=== PATIENT | female | born 1965 | race Caucasian/White ===

== ENCOUNTER 2016-09-28 18:57 | Emergency (ER) | payer BC, OTHER ==
[~2016-09-28] VITALS: Ht 167.6 cm; Wt 98.4 kg
[~2016-09-28 18:57] MED LIST: ALBUAER2 INH; CALC600T9 PO; CHOL100010 PO; MULT-506 PO; PANT40TA2 PO; SNG10 PO; SYMIN8045 INH; TRAM-10 PO; ZNT/300 PO
[2016-09-28 19:01] VITALS: TEMP 36.9; Ht 167.6 cm; Wt 98.4 kg
[2016-09-28] MEDS ORDERED: KETOROLAC TROMETHAMINE 30 MG/ML VIAL IV STA (20:05)
--- NOTE | 2016-09-28 20:11 | EMERGENCY ROOM VISIT NOTE ---
History Report prepared by Mary: Fernando Swain Under the Supervision of: Dr. Myke Hansen D.O. First contact with patient: 19:31 Chief Complaint: HYPERTENSION Stated Complaint: HIGH BP,DIZZY,WEAK,TIGHNESS IN SHOULDER,HEADACHE History of Present Illness The patient is a 51 year old female who presents to the Emergency Room with complaints of a persistent headache that began yesterday, one day prior to arrival. The patient states that she was switched from Lisinopril to Hydrochlorothiazide yesterday by her primary care physician due to an adverse effect. She claims that when she began taking the Hydrochlorothiazide she began to experience persistent headaches. Her headache is worsened by movement and exertion, but is present when at rest. She is also currently complaining of pain in her jaw and left arm. She also mentions experiencing her heart racing last night. 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 Review of Systems See HPI for pertinent positives & negatives. A total of 10 systems reviewed and were otherwise negative. Past Medical & Surgical Medical Problems: (1) Asthma (2) Depression (3) Endometriosis (4) History of adenomatous polyp of colon Surgical Problems: (1) H/O: hysterectomy (2) Hx of cholecystectomy Family History Diabetes mellitus Social History Smoking Status: Never Smoker Alcohol Use: none Drug Use: none Marital Status: Housing Status: lives with family Occupation Status: employed Current/Historical Medications Scheduled Budesonide/Formoterol Fumarate (Symbicort 80-4.5 Mcg/Act), 2 PUFFS INH BID Cetirizine (Zyrtec), 10 MG PO DAILY Hydrochlorothiazide (Hctz), 12.5 MG PO QAM Labetalol (Normodyne), 200 MG PO BID Montelukast Sod (Montelukast Sodium), 10 MG PO DAILY Multivitamin (Multivitamin), 1 TAB PO DAILY Pantoprazole (Pantoprazole Sodium), 40 MG PO BID Ranitidine HCl (Ranitidine HCl), 300 MG PO HS Scheduled PRN Albuterol Sulfate (Proair Respiclick), 1 PUFF INH for SOB/Wheezing Allergies Coded Allergies: Cimicifuga [place] (Black Cohosh) (Verified Allergy, Unknown, HIVES, ) Physical Exam Vital Signs Date Time Temp Pulse Resp B/P (MAP) Pulse Ox O2 Delivery O2 Flow Rate FiO2 09/28/16 22:04 62 16 116/71 96 09/28/16 21:04 64 09/28/16 21:00 65 14 146/84 97 Room Air 09/28/16 20:23 67 16 154/97 98 Room Air 09/28/16 20:12 64 16 155/85 09/28/16 19:43 60 163/102 09/28/16 19:01 36.9 75 18 163/96 98 Room Air Physical Exam GENERAL: Patient is awake, alert, and in no acute distress. Patient is resting comfortably and showing no signs of anxiety EYES: The conjunctivae are clear. The pupils are round and reactive. EARS, NOSE, MOUTH AND THROAT: The nose is without any evidence of any deformity. Mucous membranes are moist tongue is midline NECK: The neck is nontender and supple. RESPIRATORY: Normal respiratory effort is noted there is no evidence of wheezing rhonchi or rales CARDIOVASCULAR: Regular rate and rhythm noted there no murmurs rubs or gallops normal S1 normal S2 GASTROINTESTINAL: The abdomen is soft. Bowel sounds are present in all quadrants. Abdomen is nontender PELVIS: The Pelvis is stable. No tenderness to palpation is noted. BACK: No midline tenderness or or step-off noted range of motion in flexion extension as well as rotation no signs of muscle spasm noted MUSCULOSKELETAL/EXTREMITIES: There is no evidence of gross deformity full range of motion is noted in the hips and shoulders SKIN: There is no obvious evidence of any rash. There are no petechiae, pallor or cyanosis noted. NEUROLOGIC: Patient is awake alert and oriented x3. Medical Decision & Procedures ER Provider Diagnostic Interpretation: Radiology results as stated below per my review and radiologist interpretation: CHEST ONE VIEW PORTABLE CLINICAL HISTORY: cough HYPERTENSION, DIZZINESS, WEAKNESS. HEADACHE. COMPARISON STUDY: 04/02/2015 FINDINGS: The cardiac and mediastinal contours are normal. There is no evidence of focal pulmonary consolidation. There is no evidence of failure. No pleural effusions are visualized.[ IMPRESSION: No active disease in the chest. Electronically signed by: Khoa Boland M.D. 09/28/2016 8:53 PM Dictated Date/Time: 09/28/2016 8:[address] severe headache CLINICAL HISTORY: [facility]EN COMPARISON STUDY: No previous studies for comparison. TECHNIQUE: Axial CT of the brain is performed from the vertex to the skull base. IV contrast was not administered for this examination. CT DOSE: 537.48 mGy.cm FINDINGS: No intra or extra-axial mass lesions are visualized. There is no CT evidence of acute cortical infarction. There is no evidence of midline shift. There is no acute hemorrhage. No calvarial fractures are visualized. There is no evidence of pathologic ventricular dilatation. There is no evidence of acute sinusitis IMPRESSION: Normal noncontrast head CT for age Electronically signed by: Khoa Boland M.D. 09/28/2016 8:37 PM Dictated Date/Time: 09/28/2016 8:36 PM Laboratory Results 09/28/16 19:38 Red Blood Count 5.13, Mean Corpuscular Volume 82.8, Mean Corpuscular Hemoglobin 28.3, Mean Corpuscular Hemoglobin Concent 34.1, Mean Platelet Volume 10.2, Neutrophils (%) (Auto) 54.5, Lymphocytes (%) (Auto) 32.8, Monocytes (%) (Auto) 8.3, Eosinophils (%) (Auto) 3.8, Basophils (%) (Auto) 0.5, Neutrophils # (Auto) 5.02, Lymphocytes # (Auto) 3.03, Monocytes # (Auto) 0.77, Eosinophils # (Auto) 0.35, Basophils # (Auto) 0.05 09/28/16 19:38 Test 09/28/16 19:38 09/28/16 21:13 White Blood Count 9.23 K/uL (4.8-10.8) Red Blood Count 5.13 M/uL (4.2-5.4) Hemoglobin 14.5 g/dL (12.0-16.0) Hematocrit 42.5 % (37-47) Mean Corpuscular Volume 82.8 fL (80-100) Mean Corpuscular Hemoglobin 28.3 pg (25-34) Mean Corpuscular Hemoglobin Concent 34.1 g/dl (32-36) Platelet Count 354 K/uL (130-400) Mean Platelet Volume 10.2 fL (7.4-10.4) Neutrophils (%) (Auto) 54.5 % Lymphocytes (%) (Auto) 32.8 % Monocytes (%) (Auto) 8.3 % Eosinophils (%) (Auto) 3.8 % Basophils (%) (Auto) 0.5 % Neutrophils # (Auto) 5.02 K/uL (1.4-6.5) Lymphocytes # (Auto) 3.03 K/uL (1.2-3.4) Monocytes # (Auto) 0.77 K/uL (0.11-0.59) Eosinophils # (Auto) 0.35 K/uL (0-0.5) Basophils # (Auto) 0.05 K/uL (0-0.2) RDW Standard Deviation 39.6 fL (36.4-46.3) RDW Coefficient of Variation 13.2 % (11.5-14.5) Immature Granulocyte % (Auto) 0.1 % Immature Granulocyte # (Auto) 0.01 K/uL (0.00-0.02) Prothrombin Time 10.0 SECONDS (9.0-12.0) Prothromb Time International Ratio 0.9 (0.9-1.1) Activated Partial Thromboplast Time 24.5 SECONDS (21.0-31.0) Partial Thromboplastin Ratio 0.9 Anion Gap 9.0 mmol/L (3-11) Est Creatinine Clear Calc Drug Dose 77.8 ml/min Estimated GFR () 75.0 Estimated GFR (Non- 64.7 BUN/Creatinine Ratio 13.2 (10-20) Calcium Level 9.0 mg/dl (8.5-10.1) Magnesium Level 2.2 mg/dl (1.8-2.4) Total Bilirubin 0.2 mg/dl (0.2-1) Aspartate Amino Transf (AST/SGOT) 13 U/L (15-37) Alanine Aminotransferase (ALT/SGPT) 22 U/L (12-78) Alkaline Phosphatase 77 U/L (45-117) Total Creatine Kinase 81 U/L (26-192) Creatine Kinase MB 0.6 ng/ml (0.5-3.6) Creatine Kinase MB Ratio 0.7 (0-3.0) Troponin I < 0.015 ng/ml (0-0.045) Total Protein 7.4 gm/dl (6.4-8.2) Albumin 3.7 gm/dl (3.4-5.0) Lipase 118 U/L (73-393) Chemistry Specimen Hemolysis Direct Bilirubin < 0.1 mg/dl (0-0.2) Laboratory results per my review. Medications Administered Medications (Trade) Dose Ordered Sig/Valentina Route Start Time Stop Time Status Last Admin Dose Admin Ketorolac Tromethamine (Toradol Inj) 30 mg NOW STAT IV 09/28/16 20:05 09/28/16 20:07 DC 09/28/16 20:20 30 MG Labetalol HCl (Normodyne Tab) 200 mg NOW ONCE PO 09/28/16 20:15 09/28/16 20:16 DC 09/28/16 20:19 200 MG ECG Indication: palpitations Rate (beats per minute): 64 Rhythm: normal sinus Findings: no acute ischemic change, no ectopy Comparison ECG Date: 04/04/2015 Change: no significant change ED Course 1955: The patient was evaluated in room C8. A complete history and physical examination were performed. 2004: Ordered Toradol 30 mg IV. 2014: Ordered Labetalol HCl 200 mg PO. 2154: Upon reevaluation, the patient is resting in bed. I discussed the results and treatment plan with her. She verbalized agreement of the treatment plan. The patient was discharged home. Medical Decision Blood pressure screening: Patient was found to have an elevated blood pressure and was referred to their primary doctor for recheck and further treatment. Medication Reconciliation: I attest that I have personally reviewed the patient' s current medications list. Differential diagnosis: Etiologies such as migraine headache, meningitis, sinusitis, CO exposure, ICH, SAH, infection, tumor, headache, sinus thrombosis, arterial dissection, as well as others were entertained. The patient is a 51-year-old female who presented to the emergency department for evaluation of headache and elevated blood pressure. The patient has a history of chronic hypertension but recently started having side effects from her REJI inhibitor. For this reason her blood pressure medication was changed and she is now taking HCTZ. She has found that she has had for blood pressure control with this medication. She states that she has been compliant with her medication but does not have a follow-up appointment with her doctor for 2 weeks. The patient was treated with labetalol in the emergency department. She was reevaluated multiple times. On subsequent reevaluation she was feeling much better and her blood pressure improved. She was encouraged to continue all medications as prescribed. She was also encouraged to rest and avoid any strenuous activity. I also recommended that she follow-up with her family doctor for blood pressure check or return to the emergency department immediately if symptoms change worsen or the need arises. She was also told that she may need a refill the medication that I started her on today because she was only given a 30 day supply to ensure she did not start a medication that her primary care physician did not want to switch at some point. Impression Primary Impression: Hypertension Additional Impression: Left-sided headache Scribe Attestation The scribe's documentation has been prepared under my direction and personally reviewed by me in its entirety. I confirm that the note above accurately reflects all work, treatment, procedures, and medical decision making performed by me. Departure Information Dispostion Home / Self-Care Prescriptions Labetalol (Normodyne) 200 Mg Tab 200 MG PO BID, #60 TAB Prov: Myke Hansen, DO 09/28/16 Referrals RV. Morrell MD (PCP) Forms HOME CARE DOCUMENTATION FORM, IMPORTANT VISIT INFORMATION, WORK / SCHOOL INSTRUCTIONS Patient Instructions My [facility] Additional Instructions Continue all medications as prescribed. Rest and avoid any strenuous activity. Call your family [facility] to schedule a follow-up appointment. Be sure to have your blood pressures checked with your family doctor to determine if you need any changes in your blood pressure medications. Problem Qualifiers
[2016-09-28 20:13] LABS: BASO % 0.5 %; BASO ABS # 0.05 K/uL (0-0.2); COMPLETE YES; EOS % 3.8 %; HEMATOCRIT 42.5 % (37-47); IG% 0.1 %; LYMPH % 32.8 %; LYMPH ABS # 3.03 K/uL (1.2-3.4); MEAN CELL VOLUME 82.8 fL (80-100); MEAN CORPUSCULAR HEMOGLOBIN 28.3 pg (25-34); MEAN CORPUSCULAR HGB CONC 34.1 g/dl (32-36); MEAN PLATELET VOLUME 10.2 fL (7.4-10.4); MONO % 8.3 %; NEUT % 54.5 %; PLATELET COUNT 354 K/uL (130-400); RED BLOOD COUNT 5.13 M/uL (4.2-5.4); WHITE BLOOD COUNT 9.23 K/uL (4.8-10.8)
[2016-09-28] MEDS ORDERED: CETI10TA84 PO (20:14)
[2016-09-28] MEDS ORDERED: ALBU18002 INH (20:14)
[2016-09-28] MEDS ORDERED: HYDR12.56 PO (20:14)
[2016-09-28] MEDS ORDERED: LABETALOL HCL 100 MG TAB PO ONE (20:15)
[2016-09-28 20:25] LABS: INR 0.9 (0.9-1.1); PARTIAL THROMBOPLASTIN RATIO 0.9
[2016-09-28 20:36] LABS: ALKALINE PHOSPHATASE 77 U/L (45-117); ALT/SGPT 22 U/L (12-78); AST/SGOT 13 U/L (15-37); BLOOD UREA NITROGEN 13 mg/dl (7-18); BUN/CREATININE RATIO 13.2 (10-20); CARBON DIOXIDE 27 mmol/L (21-32); CHLORIDE 103 mmol/L (98-107); CKMB/CK RATIO 0.7 (0-3.0); GLUCOSE 97 mg/dl (70-99); MAGNESIUM 2.2 mg/dl (1.8-2.4); POTASSIUM 3.9 mmol/L (3.5-5.1); SODIUM 139 mmol/L (136-145)
--- NOTE | 2016-09-28 20:38 | DIAGNOSTIC IMAGING REPORT ---
CT severe headache CLINICAL HISTORY: [facility]EN COMPARISON STUDY: No previous studies for comparison. TECHNIQUE: Axial CT of the brain is performed from the vertex to the skull base. IV contrast was not administered for this examination. CT DOSE: 537.48 mGy.cm FINDINGS: No intra or extra-axial mass lesions are visualized. There is no CT evidence of acute cortical infarction. There is no evidence of midline shift. There is no acute hemorrhage. No calvarial fractures are visualized. There is no evidence of pathologic ventricular dilatation. There is no evidence of acute sinusitis IMPRESSION: Normal noncontrast head CT for age Electronically signed by: Khoa Boland M.D. 09/28/2016 8:37 PM Dictated Date/Time: 09/28/2016 8:36 PM
--- NOTE | 2016-09-28 20:54 | DIAGNOSTIC IMAGING REPORT ---
CHEST ONE VIEW PORTABLE CLINICAL HISTORY: cough HYPERTENSION, DIZZINESS, WEAKNESS. HEADACHE. COMPARISON STUDY: 04/02/2015 FINDINGS: The cardiac and mediastinal contours are normal. There is no evidence of focal pulmonary consolidation. There is no evidence of failure. No pleural effusions are visualized.[ IMPRESSION: No active disease in the chest. Electronically signed by: Khoa Boland M.D. 09/28/2016 8:53 PM Dictated Date/Time: 09/28/2016 8:52 PM
[2016-09-28] MEDS ORDERED: LABE1TAB28 PO (21:53)
[2016-09-28 22:04] VITALS: BP 116/71; PULSE 62; O2SAT 96
== END 2016-09-28 22:06 | disposition home or self-care (01) ==
LOC: C.EDB 18:59 → C.EDC 22:06
DX: I10 Essential (primary) hypertension (principal); R51 Headache; J45.909 Unspecified asthma, uncomplicated; F33.41 Major depressive disorder, recurrent, in partial remission; N80.9 Endometriosis, unspecified; Z83.3 Family history of diabetes mellitus

== ENCOUNTER → 2017-02-05 | Outpatient (CLI) | payer OTHER, BC ==
[~2017-02-05] MED LIST changes: +ALBU18002 INH; -ALBUAER2 INH; -CALC600T9 PO; +CETI10TA84 PO; -CHOL100010 PO; +HYDR12.56 PO; +LABE1TAB28 PO; -PANT40TA2 PO; +PRT/40 PO; -TRAM-10 PO
--- NOTE | 2017-02-05 11:37 | DIAGNOSTIC IMAGING REPORT ---
ULTRASOUND OF THE CAROTID ARTERIES CLINICAL HISTORY: I10 Benign essential [id number] TIA (transient ischemic attack COMPARISON STUDY: None. TECHNIQUE: Real-time, grayscale, and color Doppler sonography of the carotid arteries was performed. Imaging reviewed in the transverse and longitudinal planes. NASCET criteria was utilized for stenosis calcification. FINDINGS: There is minimal atherosclerotic plaque present . The peak systolic velocity within the right internal carotid artery is 116 cm/sec. The systolic velocity ratio of right internal to common carotid artery is 0.9. The peak systolic velocity within the left internal carotid artery is 108 cm/sec. The systolic velocity ratio left internal to common carotid artery is 0.8. Antegrade flow is seen in the vertebral arteries. The external carotid arteries are patent. Blood pressure in the right arm measured 127 mm/Hg. Blood pressure in the left arm measured 116 mm/Hg. IMPRESSION: No evidence of hemodynamically significant carotid stenosis. Electronically signed by: Khoa Boland M.D. 02/05/2017 11:36 AM Dictated Date/Time: 02/05/2017 11:35 AM
== END | disposition home or self-care (01) ==
LOC: C.ULTR 10:45
PROVIDERS: ATTEND Internal Medicine
DX: I10 Essential (primary) hypertension (principal); G45.9 Transient cerebral ischemic attack, unspecified; F80.89 Other developmental disorders of speech and language

== ENCOUNTER → 2017-03-12 | Outpatient (CLI) | payer OTHER, BC ==
[~2017-03-12] MED LIST changes: +PANT40TA2 PO; -PRT/40 PO
--- NOTE | 2017-03-15 08:13 | MAMMOGRAPHY REPORT ---
BILATERAL DIGITAL SCREENING MAMMOGRAM TOMOSYNTHESIS WITH CAD: 03/12/2017 CLINICAL HISTORY: Routine screening. The patient reported to the technologist intermittent left late ral breast pain for approximately 6 months. TECHNIQUE: Breast tomosynthesis in addition to standard 2D mammography was performed. Current study was also evaluated with a Computer Aided Detection (CAD) system. COMPARISON: Comparison is made to exams dated: 02/29/2016 mammogram, 02/16/2015 mammogram, 01/19/2014 mammogram, 11/01/2011 mammogram, 01/08/2013 mammogram, and 10/16/2010 mammogram - [facility]. BREAST COMPOSITION: There are scattered areas of fibroglandular density in both breasts. FINDINGS: No suspicious masses, calcifications, or areas of architectural distortion are noted in ei ther breast. There has been no significant interval change compared to prior exams. A square marker abraham the site of intermittent pain pointed out by the patient in the left upper outer quadrant. No suspicious masses or other suspicious mammographic abnormalities are seen in this region. A linear s car marker denotes a scar on the left upper outer breast. Bilateral benign-appearing calcifications are not significantly changed. IMPRESSION: ACR BI-RADS CATEGORY 2: BENIGN There is no mammographic evidence of malignancy. A 1 year screening mammogram is recommended. Also r ecommend clinical follow-up for intermittent left lateral breast pain. The patient will receive writ ten notification of the results. Approximately 10% of breast cancers are not detected with mammography. A negative mammographic report should not delay biopsy if a clinically suggestive mass is present. Amy Hill M.D. ah/:03/12/2017 16:18:27 Grades 1 Through 5 Teacher: Luiza Tran M, [facility] letter sent: Normal 1/2 BI-RADS Code: ACR BI-RADS Category 2: Benign
== END | disposition home or self-care (01) ==
LOC: C.MAMM 15:20
PROVIDERS: ATTEND Obstetrics & Gynecology
DX: Z12.31 Encounter for screening mammogram for malignant neoplasm of breast (principal)

== ENCOUNTER → 2017-03-12 | Outpatient (CLI) | payer OTHER, BC | END | disposition home or self-care (01) | LOC: C.PAPS 09:40 | PROVIDERS: ATTEND Obstetrics & Gynecology | DX: Z01.419 Encounter for gynecological examination (general) (routine) without abnormal findings (principal) ==

== ENCOUNTER → 2017-09-05 | Outpatient (CLI) | payer OTHER, BC ==
[~2017-09-05] MED LIST changes: -LABE1TAB28 PO
[2017-09-05 14:58] LABS: ALBUMIN 3.5 gm/dl (3.4-5.0); ALKALINE PHOSPHATASE 67 U/L (45-117); ALT/SGPT 29 U/L (12-78); AST/SGOT 19 U/L (15-37); BLOOD UREA NITROGEN 12 mg/dl (7-18); CARBON DIOXIDE 28 mmol/L (21-32); CHOLESTEROL 199 mg/dl (0-200); CREATININE 1.04 mg/dl (0.60-1.20); GLUCOSE 106 mg/dl (70-99); LDL CHOLESTEROL CALCULATED 116 mg/dl; POTASSIUM 3.9 mmol/L (3.5-5.1); SODIUM 139 mmol/L (136-145); TOTAL PROTEIN 7.2 gm/dl (6.4-8.2)
== END | disposition home or self-care (01) ==
LOC: C.LABPBG 07:32
PROVIDERS: ATTEND Internal Medicine
DX: I10 Essential (primary) hypertension (principal); E55.9 Vitamin D deficiency, unspecified

== ENCOUNTER 2024-09-13 16:32 | Inpatient (IN) ==
--- NOTE | 2024-09-13 17:08 | Emergency Department Note ---
Impression & Plan Bipolar 1 disorder with moderate amparo, Abdominal pain, HTN (hypertension), Elevated troponin ED Provider Note Provider: Otoniel Smith MD CHIEF COMPLAINT: Amparo, stomach upset HISTORY OF PRESENT ILLNESS: Patient is a 58-year-old female history of bipolar, PTSD, and GERD presenting here today brought by son. Patient's provide some history but extensive history from patient's son who states that she had a good manic episode. This began on Saturday 2 days ago. Has been some increased work stress recently. Over the last several months was titrated down to 250 mg of valproic acid at night and to establish with a new psychiatrist. Patient herself is a bit tearful. Slow and quiet to respond. States has not slept in several days and feels weak and a little bit of upper abdominal discomfort. No falls. Patient's son reports patient's been having visual and auditory hallucinations seeing and hearing people who are not there. He states that the patient has been wandering some and expressed to him some thoughts of possibly wanting to harm herself. Patient states she would never hurt herself but does not answer further questions on this point. She does not want to hurt anybody else at this time. Patient son reports the patient every few years has a manic episode and it has been approximately 2 years since her last but this is worse than normal. Was able to consider comfort care today. Patient denies any drug or alcohol issues. Patient's son states that he has been able to get her to take her medicines with some urging. Reports about a week of some abdominal discomfort. Patient's son states that the patient often has some abdominal upset when she has manic episodes related to stress. No traumas reported. PAST MEDICAL HISTORY: As noted above MEDICATIONS: Reviewed home medications SOCIAL HISTORY: Denies drug or alcohol use. PHYSICAL EXAM: GENERAL: alert and oriented in no acute distress on stretcher Head: normocephalic and atraumatic EYES: No injection, purulent discharge or icterus. NECK: Trachea midline. ENT: Mucous membranes pink and moist. LUNGS: Airway patent. No retractions. Breath sounds clear HEART: Regular rate and rhythm. No chest wall tenderness ABDOMEN: Soft with some mild to moderate abdominal tenderness above the abdomen. SKIN: Acyanotic, warm, dry, without rashes EXTREMITIES: Without swelling, tenderness or deformity NEUROLOGICAL: No focal deficits. No aphasia. No facial droop or slurred speech. Ambulatory. Psych: Flattened affect at times tearful. Reports hallucinations but not obviously responding to external stimuli. Denies that she harm her self but does not answer question if she had suicidal thoughts. No homicidal tendencies or thoughts reported by the patient or son. EK bpm normal sinus rhythm. No PVC or PAC. No acute ST segment elevation or depression with some nonspecific T wave changes and T wave flattening with QTc of 441. Patient's laboratory studies and imaging reviewed. Differential includes Mood disorder, infection, hypoglycemia, electrolyte abnormalities, gastrointestinal, pancreatitis, gastritis, cardiac sources, intracerebral event, toxicologic, trauma, neurologic, as well as other pathologies. IMPRESSION/MEDICAL DECISION MAKING: Patient appears with flat affect and tearful with manic symptoms reported. History of PTSD bipolar with flare last reported 2 years ago. Does not appear to be functioning well at this time. The abdominal discomfort and tenderness could be functional/matization but will obtain blood work as well as a CT scan to exclude other occult pathology here. Doubt meningitis or CVA at this time based on her presentation. Seen with case management regards to her mental health/psychiatric complaints with hallucinations. Believe further inpatient care would be beneficial for the patient from a psychiatric standpoint. Blood work here returns slight nonspecific leukocytosis of 13. No anemia. No severe electrolyte abnormality with normal creatinine. No blood work findings consistent with acute hepatitis or pancreatitis. Troponin returns at 26.6 elevated from prior baseline of 2.5. Not having active chest pain. EKG without significant findings. Question stress response. Tylenol, acetaminophen, alcohol levels returned undetectable with a valproic acid level of 20 on the lower end. Negative COVID testing. Some ketones in the urine which does appear somewhat concentrated given a gentle IV fluid bolus. CT abdomen pelvis shows without acute abnormality per radiology report. Patient certainly needs psychiatric care regarding her amparo symptoms, however do question if the stress of the situation is causing a slight troponin elevation and given this with her hypertension, we will bring into the hospital and medical service for further care here. Further discussion patient and family later reports been probably 2 to 3 days and she is taking her home carvedilol which is likely contributing to her blood pressure. Patient declined IV labetalol here and will see blood pressure control with restart of her oral medications. Blood pressure did improve somewhat. Discussed with the hospitalist team further observation here. Discussed with the hospitalist team. DIAGNOSIS: Amparo, bipolar disorder, abdominal pain, hypertensive, elevated troponin DISPOSITION: Being evaluated by the hospitalist team. Patient and family updated. Past Med/Surg History Problem List Elevated troponin (Acute) HTN (hypertension) (Acute) Abdominal pain (Acute) Bipolar 1 disorder with moderate amparo (Acute) Degenerative disc disease, lumbar Foot pain, right Right knee pain Prediabetes Postmenopausal Metabolic syndrome Overweight SOB (shortness of breath) on exertion Allergy Asthma (Chronic) Acid reflux disease (Chronic) Chronic sinusitis (Chronic) Lumbar herniated disc (Chronic) PTSD (post-traumatic stress disorder) (Chronic) Sinus bradycardia (Chronic) Sleep disturbance (Chronic) Transient ischemic attack (Chronic) Vitamin D deficiency (Chronic) Depression (Chronic) Hypertension (Chronic) Medical History Cataract UTI (urinary tract infection) COVID-19 Uterine leiomyoma Breast mass Encounter for routine gynecological examination Esophagitis Mood disorder Left flank pain Insomnia Hallucinations History of adenomatous polyp of colon Asthma Endometriosis Chest pain Surgical History S/P bilateral salpingo-oophorectomy Status post laparoscopic supracervical hysterectomy S/P cholecystectomy History of sinus surgery History of nasal septoplasty History of breast biopsy History of laparoscopy endometriosis with laser Family History Mother Hypertension Asthma Malignant neoplasm of uterus Brother Hypertension Grandmother Diabetes Father Kidney stones Myocardial infarction Family/Other Osteoporosis Grandfather (Maternal) Myocardial infarction Other Cancer Heart disease Denies family history of Ovarian cancer Prostate cancer Breast cancer Colorectal cancer Social History Smoking Status: Never smoker Do You Dip or Chew Tobacco: No; Hx Alcohol Use: No Hx Substance Use: No Preferred Language: Latvian Communication Ability: Effective Visual Impairment: No Limitations Hearing Ability: Normal Hospital Clinic Assistant Required: No marital status: Current Living Situation: Spouse current occupational status: employed Feels Safe at Home: No Childhood Exposure to Second-Hand Smoke: No Dental Care, Regularly: Yes Physical Activity Frequency: 3-4 Times per Week Seatbelt Use: always Sunscreen Use: Yes Gender Identity: Female Allergies Allergies Allergy/AdvReac Type Severity Reaction Status Date / Time black cohosh Allergy Unknown HIVES Verified 09/13/24 19:11 methylprednisolone Allergy Unknown Redness of Verified 09/13/24 19:11 Skin clindamycin Allergy Hives Verified 09/13/24 19:11 hydrochlorothiazide Allergy Hives Verified 09/13/24 19:11 lisinopril Allergy Cough Verified 09/13/24 19:11 Home Meds Home Medications Medication Instructions Recorded Confirmed calcium carbonate (Calcium 600) 600 mg PO DAILY 09/27/22 09/13/24 ferrous sulfate 325 mg (65 mg 325 mg PO Q OTHER DAY 05/11/24 09/13/24 iron) tablet divalproex 250 mg tablet,extended 250 mg PO HS 05/25/24 09/13/24 release 24 hr ergocalciferol (vitamin D2) 1,250 1,250 mcg PO WK 05/25/24 09/13/24 mcg (50,000 unit) capsule (Vitamin D2) Previous Rx's Medication Instructions Recorded montelukast 10 mg tablet 10 mg PO HS #90 tabs 02/03/24 cetirizine 10 mg tablet 10 mg PO HS #90 tabs 04/06/24 albuterol sulfate 90 mcg/actuation 1 inh inhalation QID PRN shortness 04/14/24 aerosol inhaler of breath or wheezing #6.7 grams budesonide-formoterol HFA 160 2 puff inhalation Q12H #10.2 grams 05/11/24 mcg-4.5 mcg/actuation aerosol inhaler (Symbicort) meclizine 25 mg tablet 25 mg PO TID PRN dizziness #14 tabs 05/25/24 carvedilol 12.5 mg tablet 12.5 mg PO BID #60 tabs 08/11/24 Results & Data (ED) Vital Signs Vital Signs - 24 hr 09/13/24 16:33 09/13/24 18:07 09/13/24 18:10 Temperature 36.6 C Temperature Source Temporal Artery Scan Pulse Rate 105 H 77 Pulse Rate [Apical] Pulse Rate from SpO2 Sensor Respiratory Rate 18 Blood Pressure 187/102 H 188/102 H Blood Pressure [Left Arm] Blood Pressure Mean 130 149 Blood Pressure Mean [Left Arm] Pulse Oximetry 96 Oxygen Delivery Method Sepsis Recent Fever Within 48 Hours No Sepsis New/Unexplained Change in Mental Status N/A Sepsis Action Taken by Nursing No Action Required 09/13/24 18:21 09/13/24 18:39 09/13/24 18:40 Temperature Temperature Source Pulse Rate 83 95 H Pulse Rate [Apical] Pulse Rate from SpO2 Sensor 82 96 H Respiratory Rate 25 H 25 H Blood Pressure 171/83 H Blood Pressure [Left Arm] Blood Pressure Mean 111 Blood Pressure Mean [Left Arm] Pulse Oximetry 97 97 Oxygen Delivery Method Room Air Room Air Sepsis Recent Fever Within 48 Hours Sepsis New/Unexplained Change in Mental Status Sepsis Action Taken by Nursing 09/13/24 19:00 09/13/24 20:00 09/13/24 21:14 Temperature Temperature Source Pulse Rate Pulse Rate [Apical] 75 69 71 Pulse Rate from SpO2 Sensor Respiratory Rate 16 16 16 Blood Pressure Blood Pressure [Left Arm] 158/96 H 150/87 H 145/78 H Blood Pressure Mean Blood Pressure Mean [Left Arm] 116 108 100 Pulse Oximetry 98 96 100 Oxygen Delivery Method Room Air Room Air Room Air Sepsis Recent Fever Within 48 Hours Sepsis New/Unexplained Change in Mental Status Sepsis Action Taken by Nursing 09/13/24 22:00 09/13/24 22:17 09/13/24 23:00 Temperature Temperature Source Pulse Rate 83 78 Pulse Rate [Apical] 92 H Pulse Rate from SpO2 Sensor Respiratory Rate 16 16 Blood Pressure 155/88 H Blood Pressure [Left Arm] 155/85 H Blood Pressure Mean Blood Pressure Mean [Left Arm] 108 Pulse Oximetry 97 99 Oxygen Delivery Method Room Air Sepsis Recent Fever Within 48 Hours Sepsis New/Unexplained Change in Mental Status Sepsis Action Taken by Nursing Laboratory Data 09/13/24 16:58 09/13/24 16:58 Lab Results 09/13/24 09/13/24 09/13/24 Range/Units 16:40 16:58 18:08 WBC 13.15 H (4.8-10.8) K/ul RBC 5.98 H (4.20-5.40) M/uL Hgb 16.7 H (12.0-16.0) g/dl Hct 49.2 H (37.0-47.0) % MCV 82.3 (80.0-100.0) fL MCH 27.9 (25.0-34.0) pg MCHC 33.9 (32.0-36.0) g/dL RDW Std Deviation 37.7 (36.4-46.3) fL RDW Coeff of Yajaira 12.8 (11.5-14.5) % Plt Count 454 H (130-400) K/uL MPV 10.1 (9.4-12.4) fL Immature Gran % (Auto) 0.3 % Neut % (Auto) 75.7 % Lymph % (Auto) 16.0 % [place] % (Auto) 7.4 % Eos % (Auto) 0.1 % Baso % (Auto) 0.5 % Neut # (Auto) 9.96 H (1.40-6.50) K/uL Lymph # (Auto) 2.11 (1.20-3.40) K/uL [place] # (Auto) 0.97 H (0.11-0.59) K/uL Eos # (Auto) 0.01 (0.00-0.50) K/uL Baso # (Auto) 0.06 (0.00-0.20) K/uL Immature Gran # (Auto) 0.04 (0.01-0.20) K/uL Sodium 138 (136-145) mmol/L Potassium 3.7 (3.5-5.1) mmol/L Chloride 102 (98-107) mmol/L Carbon Dioxide 19 L (21-32) mmol/L Anion Gap 17 H (3-11) BUN 20 (6-23) mg/dl Creatinine 0.89 (0.6-1.2) mg/dl Est Cr Clr Drug Dosing 76.2 ml/min eGFR 74.64 BUN/Creatinine Ratio 22.5 H (10-20) Glucose 120 H (70-99(Fasting)) mg/dl Lactate (0.4-2.0) mmol/L Calcium 10.2 (8.6-10.3) mg/dl Total Bilirubin 0.5 (0.2-1.0) mg/dl AST 19 (13-39) U/L ALT 15 (7-52) U/L Alkaline Phosphatase 65 (34-104) U/L Troponin I High Sens 26.6 H (0-14) pg/ml Total Protein 8.4 H (6.0-8.3) gm/dl Albumin 5.0 (3.4-5.0) gm/dl Globulin 3.4 (2.5-4.0) gm/dl Albumin/Globulin Ratio 1.5 (0.9-2) Lipase 8 L (11-82) U/L TSH 2.073 (0.300-4.500) uIu/ml Urine Color Yellow Urine Appearance Clear (Clear) Urine pH 5.0 (4.5-7.5) Ur Specific [place] > 1.045 H (1.000-1.030) Urine Protein 1+ H (Negative) Urine Glucose (UA) Negative (Negative) Urine Ketones 4+ H (Negative) Urine Blood 1+ H (Negative) Urine Nitrite Negative (Negative) Urine Bilirubin Negative (Negative) Urine Urobilinogen Negative (Negative) Ur Leukocyte Esterase Negative (Negative) Urine WBC (Auto) 0-5 (0-5) /hpf Urine RBC (Auto) 6-10 H (0-2) /hpf U Hyaline Cast (Auto) 0-2 (0-2) /lpf U Epithel Cells (Auto) 0-2 (0-2) /hpf Urine Bacteria (Auto) None Seen (None Seen) Urine Comment Salicylates < 3.0 L (3.0-30) mg/dl Urine Opiates Screen Neg (Neg) Ur Methadone, Qual Neg (Neg) Urine Fentanyl Screen Neg (Neg) Acetaminophen < 3 L (10-30) ug/ml Urine Barbiturates Neg (Neg) Valproic Acid 20 L (50-100) mcg/ml Ur Phencyclidine (PCP) Neg (Neg) U Amphetamin/Meth Scrn Neg (Neg) MDMA (Ecstasy) Screen Neg (Neg) U Benzodiazepines Scrn Neg (Neg) Ur Cocaine Metabolite Neg (Neg) U Marijuana (THC) Screen Neg (Neg) Ethyl Alcohol mg/dL < 10.0 (<10.0) mg/dl SARS-CoV-2, RNA, NAAT NEGATIVE (NEGATIVE) 09/13/24 09/13/24 Range/Units 20:43 21:12 WBC (4.8-10.8) K/ul RBC (4.20-5.40) M/uL Hgb (12.0-16.0) g/dl Hct (37.0-47.0) % MCV (80.0-100.0) fL MCH (25.0-34.0) pg MCHC (32.0-36.0) g/dL RDW Std Deviation (36.4-46.3) fL RDW Coeff of Yajaira (11.5-14.5) % Plt Count (130-400) K/uL MPV (9.4-12.4) fL Immature Gran % (Auto) % Neut % (Auto) % Lymph % (Auto) % [place] % (Auto) % Eos % (Auto) % Baso % (Auto) % Neut # (Auto) (1.40-6.50) K/uL Lymph # (Auto) (1.20-3.40) K/uL [place] # (Auto) (0.11-0.59) K/uL Eos # (Auto) (0.00-0.50) K/uL Baso # (Auto) (0.00-0.20) K/uL Immature Gran # (Auto) (0.01-0.20) K/uL Sodium (136-145) mmol/L Potassium (3.5-5.1) mmol/L Chloride (98-107) mmol/L Carbon Dioxide (21-32) mmol/L Anion Gap (3-11) BUN (6-23) mg/dl Creatinine (0.6-1.2) mg/dl Est Cr Clr Drug Dosing ml/min eGFR BUN/Creatinine Ratio (10-20) Glucose (70-99(Fasting)) mg/dl Lactate 1.9 (0.4-2.0) mmol/L Calcium (8.6-10.3) mg/dl Total Bilirubin (0.2-1.0) mg/dl AST (13-39) U/L ALT (7-52) U/L Alkaline Phosphatase (34-104) U/L Troponin I High Sens 35.5 H (0-14) pg/ml Total Protein (6.0-8.3) gm/dl Albumin (3.4-5.0) gm/dl Globulin (2.5-4.0) gm/dl Albumin/Globulin Ratio (0.9-2) Lipase (11-82) U/L TSH (0.300-4.500) uIu/ml Urine Color Urine Appearance (Clear) Urine pH (4.5-7.5) Ur Specific [place] (1.000-1.030) Urine Protein (Negative) Urine Glucose (UA) (Negative) Urine Ketones (Negative) Urine Blood (Negative) Urine Nitrite (Negative) Urine Bilirubin (Negative) Urine Urobilinogen (Negative) Ur Leukocyte Esterase (Negative) Urine WBC (Auto) (0-5) /hpf Urine RBC (Auto) (0-2) /hpf U Hyaline Cast (Auto) (0-2) /lpf U Epithel Cells (Auto) (0-2) /hpf Urine Bacteria (Auto) (None Seen) Urine Comment Salicylates (3.0-30) mg/dl Urine Opiates Screen (Neg) Ur Methadone, Qual (Neg) Urine Fentanyl Screen (Neg) Acetaminophen (10-30) ug/ml Urine Barbiturates (Neg) Valproic Acid (50-100) mcg/ml Ur Phencyclidine (PCP) (Neg) U Amphetamin/Meth Scrn (Neg) MDMA (Ecstasy) Screen (Neg) U Benzodiazepines Scrn (Neg) Ur Cocaine Metabolite (Neg) U Marijuana (THC) Screen (Neg) Ethyl Alcohol mg/dL (<10.0) mg/dl SARS-CoV-2, RNA, NAAT (NEGATIVE) Administered Medications Discontinued Medications Carvedilol (Carvedilol 12.5 Mg Tab) 12.5 mg PO NOW ONE Stop: 09/13/24 18:41 Last Admin: 09/13/24 18:49 Dose: 12.5 mg Documented By: AMILCAR Sodium Chloride (Nss) 500 mls @ 999 mls/hr IV .Q31M ONE Stop: 09/13/24 19:03 Last Infusion: 09/13/24 19:38 Dose: Infused Documented By: Admin: 09/13/24 18:41 Dose: 999 mls/hr Documented By: AMILCAR Ioversol (Optiray 320 100ml) 90 ml IV ONCE ONE Stop: 09/13/24 17:35 Last Admin: 09/13/24 17:34 Dose: 90 ml Documented By: TORI Labetalol HCl (Labetalol Hcl Iv 5 Mg/Ml 20ml) 10 mg IV NOW STA Stop: 09/13/24 18:35 Last Admin: 09/13/24 18:51 Dose: Not Given Documented By: AMILCAR Imaging Data Radiologist's Impression: Abdomen/Pelvis CT 09/13/24 16:59 EXAM: CT abd pelvis IV con only CLINICAL HISTORY: Mid upper abdominal pain, weak, amparo TECHNIQUE: CT of the abdomen and pelvis was performed with IV contrast, with the following protocol: axial images with, and reconstructed coronal and sagittal images. One of the following dose reduction techniques was utilized for this exam: Automated exposure control, adjustment of the mA and/or kV according to patient size, and use of iterative reconstruction. COMPARISON: 01/13/2019 FINDINGS: Abdomen: Liver: Normal in size, shape, and density. No focal lesions, cysts, or masses were identified. Hepatic vasculature and biliary ducts are unremarkable. Gallbladder and Biliary System: The gallbladder is not seen. The common bile duct is normal in caliber without dilation. Pancreas: Pancreatic head, body, and tail are visualized and appear normal in size and density. No pancreatic masses or calcifications were noted. The pancreatic duct is not dilated. Spleen: Normal in size, shape, and density. No splenic lesions or masses were identified. Appendix: The appendix is normal in size without satya appendiceal fat stranding, and without an appendicolith. No evidence of appendiceal abscess or perforation. Kidneys and Adrenal Glands: Both kidneys are normal in size, shape, and position. Cortical thickness is within normal limits. No renal calculi or hydronephrosis. Adrenal glands are unremarkable with no evidence of masses or hyperplasia. Pelvis: Urinary Bladder: Normal in contour and wall thickness. No intraluminal lesions identified. Uterus: Not seen. Ovaries: Not well visualized but no gross abnormalities noted. Vagina: Normal in contour and wall thickness. Cervix: No evidence of mass or abnormal thickening. Peritoneal and Retroperitoneal Structures: No free fluid or abnormal fluid collections were identified within the abdomen or pelvis. No lymphadenopathy was noted. Bowel: The visualized bowel loops are normal in caliber and appearance. No evidence of bowel obstruction or wall thickening. Bones and Soft Tissues: Pelvic bones and soft tissues are unremarkable. No fractures or abnormal masses were identified. Mild degenerative changes of the spine. Lung bases: Dependent atelectasis in both posterior lung bases. IMPRESSION: No evidence of acute intra-abdominal pathology. No significant change from prior. Electronically signed by Sohan Mathis 09-13-2024 8:08 PM Discharge Plan Visit Data Chief Complaint: Mental Health Evaluation Stated Complaint: AMPARO, HALLUCINATION, SELF HARM ED Provider: Otoniel Smith Discharge Problem: Bipolar 1 disorder with moderate amparo, Abdominal pain, HTN (hypertension), Elevated troponin Patient Disposition: Being Evaluated by Hospitalist Condition: Fair Discharge Instructions Interventions: ED Discharge Assessment Last Done: 09/13/24 23:00 Forms Stand Alone Forms: My [facility] [employer], Suicide Prevention Resources Prescriptions Prescriptions: No Action montelukast 10 mg tablet 10 mg PO HS Qty: 90 3RF cetirizine 10 mg tablet 10 mg PO HS Qty: 90 3RF albuterol sulfate 90 mcg/actuation HFA aerosol inhaler 1 inh INH QID PRN (Reason: shortness of breath or wheezing) Qty: 6.7 3RF carvedilol 12.5 mg tablet 12.5 mg PO BID Qty: 60 5RF Rx Instructions: must administer with a meal/food calcium carbonate [Calcium 600] 600 mg calcium (1,500 mg) tablet 600 mg PO DAILY ferrous sulfate 325 mg (65 mg iron) tablet 325 mg PO Q OTHER DAY budesonide-formoterol [Symbicort] 160-4.5 mcg/actuation HFA aerosol inhaler 2 puff inhalation Q12H Qty: 10.2 1RF ergocalciferol (vitamin D2) [Vitamin D2] 1,250 mcg (50,000 unit) capsule 1,250 mcg PO WK Rx Instructions: Patient takes on Sundays divalproex 250 mg tablet extended release 24 hr 250 mg PO HS meclizine 25 mg tablet 25 mg PO TID PRN (Reason: dizziness) Qty: 14 0RF Referrals Referrals: Shai Cevallos MD [Primary Care Provider] -
[2024-09-13 17:13] LABS: Basophils # (auto) 0.06 K/uL (0.00-0.20); Basophils % (auto) 0.5 %; Eosinophils # (auto) 0.01 K/uL (0.00-0.50); Eosinophils % (auto) 0.1 %; Hematocrit (blood only) 49.2 % (37.0-47.0); Hemoglobin 16.7 g/dl (12.0-16.0); Immature Granulocytes # (auto) 0.04 K/uL (0.01-0.20); Immature Granulocytes % (auto) 0.3 %; Lymphocytes # (auto) 2.11 K/uL (1.20-3.40); Mean Corpuscular Hemoglobin 27.9 pg (25.0-34.0); Mean Corpuscular Hgb Conc 33.9 g/dL (32.0-36.0); Mean Corpuscular Volume 82.3 fL (80.0-100.0); Mean Platelet Volume 10.1 fL (9.4-12.4); Monocytes # (auto) 0.97 K/uL (0.11-0.59); Monocytes % (auto) 7.4 %; Neutrophils # (auto) 9.96 K/uL (1.40-6.50); Neutrophils % (auto) 75.7 %; Platelet Count 454 K/uL (130-400); RDW Coefficient of Variation 12.8 % (11.5-14.5); RDW Standard Deviation 37.7 fL (36.4-46.3); Red Blood Count 5.98 M/uL (4.20-5.40); White Blood Count 13.15 K/ul (4.8-10.8)
[2024-09-13 17:32] LABS: Acetaminophen < 3 ug/ml (10-30); Albumin Globulin Ratio 1.5 (0.9-2); BUN Creatinine Ratio 22.5 (10-20); Bilirubin,Total 0.5 mg/dl (0.2-1.0); Calcium 10.2 mg/dl (8.6-10.3); Creatinine Clr Calc Pharmacy 76.2 ml/min; Globulin 3.4 gm/dl (2.5-4.0); Potassium 3.7 mmol/L (3.5-5.1); Salicylate < 3.0 mg/dl (3.0-30); Total Protein 8.4 gm/dl (6.0-8.3); Valproic Acid 20 mcg/ml (50-100)
[2024-09-13 17:39] LABS: Troponin I High Sensitivity 26.6 pg/ml (0-14)
[2024-09-13 17:47] LABS: Thyroid Stimulating Hormone 2.073 uIu/ml (0.300-4.500)
[2024-09-13 18:31] LABS: Appearance Urine Clear (Clear); Bacteria Urine Automated None Seen (None Seen); Bilirubin Urine Negative (Negative); Blood Urine 1+ (Negative); Cast Urine Automated 0-2 /lpf (0-2); Color Urine Yellow; Epithelial Cell Urine Auto 0-2 /hpf (0-2); Glucose Urine UA Negative (Negative); Ketones Urine 4+ (Negative); Leukocyte Esterase Urine Negative (Negative); Nitrite Urine Negative (Negative); Protein Urine 1+ (Negative); Specific Gravity Urine > 1.045 (1.000-1.030); Urobilinogen Urine Negative (Negative); WBC Urine Automated 0-5 /hpf (0-5)
[2024-09-13 18:58] LABS: Amphetamines+Metham, Urine Neg (Neg); Barbiturates, Urine Neg (Neg); Benzodiazepine, Urine Neg (Neg); Cocaine, Urine Neg (Neg); Fentanyl, Urine Neg (Neg); MDMA (Ecstacy), Urine Neg (Neg); Marijuana, Urine Neg (Neg); Methadone, Urine Neg (Neg); Opiate, Urine Neg (Neg); Phencyclidine, Urine Neg (Neg)
--- NOTE | 2024-09-13 20:08 | CT Scan Report ---
EXAM: CT abd pelvis IV con only CLINICAL HISTORY: Mid upper abdominal pain, weak, amparo TECHNIQUE: CT of the abdomen and pelvis was performed with IV contrast, with the following protocol: axial images with, and reconstructed coronal and sagittal images. One of the following dose reduction techniques was utilized for this exam: Automated exposure control, adjustment of the mA and/or kV according to patient size, and use of iterative reconstruction. COMPARISON: 01/13/2019 FINDINGS: Abdomen: Liver: Normal in size, shape, and density. No focal lesions, cysts, or masses were identified. Hepatic vasculature and biliary ducts are unremarkable. Gallbladder and Biliary System: The gallbladder is not seen. The common bile duct is normal in caliber without dilation. Pancreas: Pancreatic head, body, and tail are visualized and appear normal in size and density. No pancreatic masses or calcifications were noted. The pancreatic duct is not dilated. Spleen: Normal in size, shape, and density. No splenic lesions or masses were identified. Appendix: The appendix is normal in size without satya appendiceal fat stranding, and without an appendicolith. No evidence of appendiceal abscess or perforation. Kidneys and Adrenal Glands: Both kidneys are normal in size, shape, and position. Cortical thickness is within normal limits. No renal calculi or hydronephrosis. Adrenal glands are unremarkable with no evidence of masses or hyperplasia. Pelvis: Urinary Bladder: Normal in contour and wall thickness. No intraluminal lesions identified. Uterus: Not seen. Ovaries: Not well visualized but no gross abnormalities noted. Vagina: Normal in contour and wall thickness. Cervix: No evidence of mass or abnormal thickening. Peritoneal and Retroperitoneal Structures: No free fluid or abnormal fluid collections were identified within the abdomen or pelvis. No lymphadenopathy was noted. Bowel: The visualized bowel loops are normal in caliber and appearance. No evidence of bowel obstruction or wall thickening. Bones and Soft Tissues: Pelvic bones and soft tissues are unremarkable. No fractures or abnormal masses were identified. Mild degenerative changes of the spine. Lung bases: Dependent atelectasis in both posterior lung bases. IMPRESSION: No evidence of acute intra-abdominal pathology. No significant change from prior. Electronically signed by Sohan Mathis 09-13-2024 8:08 PM
--- NOTE | 2024-09-13 20:17 | History & Physical Report ---
Date of Service September 13, 2024 Assessment & Plan (1) Elevated troponin: (2) HTN (hypertension): (3) Bipolar 1 disorder with moderate amparo: Plan 58-year-old female with history of hypertension, bipolar/depression presenting with several weeks of progressive amparo symptoms. Patient has not been taking her medications. Has not been eating, drinking or sleeping. #Elevated troponinpatient with mild elevation of troponin 26.6--> 35. EKG with no acute ischemic changes. Patient denies chest pain, palpitations or other cardiac complaints. Her blood pressure has been elevated. She has not been taking her antihypertensives. Possible demand ischemia in setting of elevated pressures Admit to medical telemetry Trend troponin to peak Check 2D echo #Hypertensionblood pressure mildly elevated, improved now after giving carvedilol Continue home carvedilol 12.5 Continue to monitor # bipolar 1 disorder with suspected maniapatient has not been taking her medications Will initiate Risperdal 1 mg p.o. twice daily Continue home Depakote Psychiatry consultation appreciated Patient endorsed some suicidal ideations. Will maintain one-to-one observation, suicide precautions and safe tray #Asthmachronic, well-controlled. Patient denies cough, shortness of breath or wheeze Continue home medicationsbudesonide/formoterol, albuterol as needed F/E/N -LR 125 mL/h x 2 L Prophylaxis with Lovenox 40 mg subcu daily History of Present Illness Chief Complaint: concern for amparo, elevated troponin and elevated blood pressure Primary Care Provider: Shai Cevallos MD Kajal Cadena is a 58-year-old female with history of hypertension, bipolar disorder, PTSD and depression presenting from home with her and son with complaint of possible amparo. Patient with elevated troponin as well as high blood pressure. Medical admission necessary prior to transfer to psychiatric [facility]. History obtained from patient as well as family at bedside Patient with longstanding history of bipolar disorder. She takes Depakote 250 mg p.o. nightly. She follows with Dr. Gomes at [facility]. overall she is fairly well-controlled. She has had manic episodes in the past, last being approximately 2 years ago. Family states that over the last several weeks patient has been acting more manic. She has not been taking her medications. She has not been sleeping. She has been wandering around. Patient states that she "has a lot going on" but is unable to state specifics of what is going on in her life. Son also endorses the patient has been experiencing visual and brody tory hallucinations both when she is manic as well as when she is experiencing depressed symptoms. She talks to people that are not there and occasionally sees people that are not present. Patient and family state that she has not been eating for the last several days. Patient's symptoms began to acutely worsen around September 09- and were fairly severe starting September 12. Son states that this particular episode is worse than before as patient is experiencing worse hallucinations and is less compliant and less directable than previous episodes. Son feels that she is a danger to herself. Patient did voice some suicidal thoughts prior to arrival asking her son if he had a gun so she could just shoot herself. Son also states the patient was wandering towards the busy street earlier today. Patient denies depressed symptoms, suicidal or homicidal ideations. Denies visual and auditory hallucinations Son states that patient comes quite guarded when questioned by medical personnel and often withholds information. Additionally, she is complaining of some nausea as well as generalized weakness. Also with some lower abdominal discomfort on occasion. She denies chest pain, cough, shortness of breath, palpitations, vomiting, diarrhea, urinary symptoms. In the ER patient afebrile, blood pressure initially quite elevated at 180 mmHg. She does have mild elevation of troponin = 26.6--> 35.5 ER course: Carvedilol 12.5 mg p.o. Normal saline 500 mL Allergies Allergy/AdvReac Type Severity Reaction Status Date / Time black cohosh Allergy Unknown HIVES Verified 09/13/24 19:11 methylprednisolone Allergy Unknown Redness of Verified 09/13/24 19:11 Skin clindamycin Allergy Hives Verified 09/13/24 19:11 hydrochlorothiazide Allergy Hives Verified 09/13/24 19:11 lisinopril Allergy Cough Verified 09/13/24 19:11 Home Medications Medication Instructions Recorded Confirmed Type calcium carbonate (Calcium 600) 600 mg PO DAILY 09/27/22 09/13/24 History montelukast 10 mg tablet 10 mg PO HS #90 tabs 02/03/24 09/13/24 Rx cetirizine 10 mg tablet 10 mg PO HS #90 tabs 04/06/24 09/13/24 Rx albuterol sulfate 90 mcg/actuation 1 inh inhalation QID PRN shortness 04/14/24 09/13/24 Rx aerosol inhaler of breath or wheezing #6.7 grams budesonide-formoterol HFA 160 2 puff inhalation Q12H #10.2 grams 05/11/24 09/13/24 Rx mcg-4.5 mcg/actuation aerosol inhaler (Symbicort) ferrous sulfate 325 mg (65 mg 325 mg PO Q OTHER DAY 05/11/24 09/13/24 History iron) tablet divalproex 250 mg tablet,extended 250 mg PO HS 05/25/24 09/13/24 History release 24 hr ergocalciferol (vitamin D2) 1,250 1,250 mcg PO WK 05/25/24 09/13/24 History mcg (50,000 unit) capsule (Vitamin D2) meclizine 25 mg tablet 25 mg PO TID PRN dizziness #14 tabs 05/25/24 09/13/24 Rx carvedilol 12.5 mg tablet 12.5 mg PO BID #60 tabs 08/11/24 09/13/24 Rx Past Med/Surg History Problem List Elevated troponin (Acute) HTN (hypertension) (Acute) Abdominal pain (Acute) Bipolar 1 disorder with moderate amparo (Acute) Degenerative disc disease, lumbar Foot pain, right Right knee pain Prediabetes Postmenopausal Metabolic syndrome Overweight SOB (shortness of breath) on exertion Allergy Asthma (Chronic) Acid reflux disease (Chronic) Chronic sinusitis (Chronic) Lumbar herniated disc (Chronic) PTSD (post-traumatic stress disorder) (Chronic) Sinus bradycardia (Chronic) Sleep disturbance (Chronic) Transient ischemic attack (Chronic) Vitamin D deficiency (Chronic) Depression (Chronic) Hypertension (Chronic) Medical History Cataract UTI (urinary tract infection) COVID-19 Uterine leiomyoma Breast mass Encounter for routine gynecological examination Esophagitis Mood disorder Left flank pain Insomnia Hallucinations History of adenomatous polyp of colon Asthma Endometriosis Chest pain Surgical History S/P bilateral salpingo-oophorectomy Status post laparoscopic supracervical hysterectomy S/P cholecystectomy History of sinus surgery History of nasal septoplasty History of breast biopsy History of laparoscopy endometriosis with laser Family History Mother Hypertension Asthma Malignant neoplasm of uterus Brother Hypertension Grandmother Diabetes Father Kidney stones Myocardial infarction Family/Other Osteoporosis Grandfather (Maternal) Myocardial infarction Other Cancer Heart disease Denies family history of Ovarian cancer Prostate cancer Breast cancer Colorectal cancer Social History Smoking Status: Never smoker Do You Dip or Chew Tobacco: No; Hx Alcohol Use: No Hx Substance Use: No Preferred Language: Tunisian Communication Ability: Effective Visual Impairment: No Limitations Hearing Ability: Normal Repairer General Required: No marital status: Current Living Situation: Spouse current occupational status: employed Feels Safe at Home: No Childhood Exposure to Second-Hand Smoke: No Dental Care, Regularly: Yes Physical Activity Frequency: 3-4 Times per Week Seatbelt Use: always Sunscreen Use: Yes Gender Identity: Female Review of Systems Review of Systems: All systems reviewed & are unremarkable except as noted in HPI & below Physical Exam Physical Exam: General: patient resting comfortably, NAD, non-toxic in appearance, AA&O x 4, Somewhat slow to answer questions, patient becomes tearful during exam Skin: warm, dry, intact, no rashes or lesions HEENT: NC/AT, PERRL, EOMI, anicteric sclera, conjunctiva without injection, external ear normal to inspection and nontender, nares patent, moist mucus membranes, dentition intact, no oropharyngeal lesions, neck supple, trachea midline, no LAD, no thyromegaly, no JVD Heart: +S1/S2, regular, no m/r/g Lungs: equal air entry bilaterally, no rales/rhonchi/wheezes Abd: +BS, soft, NT/ND, no masses/organomegaly/ascites Ext: warm, 2+ pulses in UE/LE bilaterally, no clubbing/cyanosis or edema Neuro: nonfocal, patient AA&O x 4, speech intact, no facial droop, moving all extremities on command with equal strength 5/5 Results & Data Results & Data Vital Signs (Past 12 Hours) Vital Signs Temp Pulse Pulse Resp BP BP Pulse Ox 09/13/24 20:00 69 16 150/87 H 96 09/13/24 19:00 75 16 158/96 H 98 09/13/24 18:40 171/83 H 09/13/24 18:39 95 H 25 H 97 09/13/24 18:21 83 25 H 97 09/13/24 18:10 77 09/13/24 18:07 188/102 H 09/13/24 16:33 36.6 C 105 H 18 187/102 H 96 O2 Del Method 09/13/24 20:00 Room Air 09/13/24 19:00 Room Air 09/13/24 18:40 09/13/24 18:39 Room Air 09/13/24 18:21 Room Air 09/13/24 18:10 09/13/24 18:07 09/13/24 16:33 Laboratory Results Laboratory Results WBC 13.15 K/ul (4.8-10.8) H 09/13/24 16:58 RBC 5.98 M/uL (4.20-5.40) H 09/13/24 16:58 Hgb 16.7 g/dl (12.0-16.0) H 09/13/24 16:58 Hct 49.2 % (37.0-47.0) H 09/13/24 16:58 MCV 82.3 fL (80.0-100.0) 09/13/24 16:58 MCH 27.9 pg (25.0-34.0) 09/13/24 16:58 MCHC 33.9 g/dL (32.0-36.0) 09/13/24 16:58 RDW Std Deviation 37.7 fL (36.4-46.3) 09/13/24 16:58 RDW Coeff of Yajaira 12.8 % (11.5-14.5) 09/13/24 16:58 Plt Count 454 K/uL (130-400) H 09/13/24 16:58 MPV 10.1 fL (9.4-12.4) 09/13/24 16:58 Immature Gran % (Auto) 0.3 % 09/13/24 16:58 Neut % (Auto) 75.7 % 09/13/24 16:58 Lymph % (Auto) 16.0 % 09/13/24 16:58 [place] % (Auto) 7.4 % 09/13/24 16:58 Eos % (Auto) 0.1 % 09/13/24 16:58 Baso % (Auto) 0.5 % 09/13/24 16:58 Neut # (Auto) 9.96 K/uL (1.40-6.50) H 09/13/24 16:58 Lymph # (Auto) 2.11 K/uL (1.20-3.40) 09/13/24 16:58 [place] # (Auto) 0.97 K/uL (0.11-0.59) H 09/13/24 16:58 Eos # (Auto) 0.01 K/uL (0.00-0.50) 09/13/24 16:58 Baso # (Auto) 0.06 K/uL (0.00-0.20) 09/13/24 16:58 Immature Gran # (Auto) 0.04 K/uL (0.01-0.20) 09/13/24 16:58 Sodium 138 mmol/L (136-145) 09/13/24 16:58 Potassium 3.7 mmol/L (3.5-5.1) 09/13/24 16:58 Chloride 102 mmol/L (98-107) 09/13/24 16:58 Carbon Dioxide 19 mmol/L (21-32) L 09/13/24 16:58 Anion Gap 17 (3-11) H 09/13/24 16:58 BUN 20 mg/dl (6-23) 09/13/24 16:58 Creatinine 0.89 mg/dl (0.6-1.2) 09/13/24 16:58 Est Cr Clr Drug Dosing 76.2 ml/min 09/13/24 16:58 eGFR 74.64 09/13/24 16:58 BUN/Creatinine Ratio 22.5 (10-20) H 09/13/24 16:58 Glucose 120 mg/dl (70-99(Fasting)) H 09/13/24 16:58 Lactate 1.9 mmol/L (0.4-2.0) 09/13/24 21:12 Calcium 10.2 mg/dl (8.6-10.3) 09/13/24 16:58 Total Bilirubin 0.5 mg/dl (0.2-1.0) 09/13/24 16:58 AST 19 U/L (13-39) 09/13/24 16:58 ALT 15 U/L (7-52) 09/13/24 16:58 Alkaline Phosphatase 65 U/L (34-104) 09/13/24 16:58 Troponin I High Sens 35.5 pg/ml (0-14) H 09/13/24 20:43 Total Protein 8.4 gm/dl (6.0-8.3) H 09/13/24 16:58 Albumin 5.0 gm/dl (3.4-5.0) 09/13/24 16:58 Globulin 3.4 gm/dl (2.5-4.0) 09/13/24 16:58 Albumin/Globulin Ratio 1.5 (0.9-2) 09/13/24 16:58 Lipase 8 U/L (11-82) L 09/13/24 16:58 TSH 2.073 uIu/ml (0.300-4.500) 09/13/24 16:58 Urine Color Yellow 09/13/24 18:08 Urine Appearance Clear (Clear) 09/13/24 18:08 Urine pH 5.0 (4.5-7.5) 09/13/24 18:08 Ur Specific [place] > 1.045 (1.000-1.030) H 09/13/24 18:08 Urine Protein 1+ (Negative) H 09/13/24 18:08 Urine Glucose (UA) Negative (Negative) 09/13/24 18:08 Urine Ketones 4+ (Negative) H 09/13/24 18:08 Urine Blood 1+ (Negative) H 09/13/24 18:08 Urine Nitrite Negative (Negative) 09/13/24 18:08 Urine Bilirubin Negative (Negative) 09/13/24 18:08 Urine Urobilinogen Negative (Negative) 09/13/24 18:08 Ur Leukocyte Esterase Negative (Negative) 09/13/24 18:08 Urine WBC (Auto) 0-5 /hpf (0-5) 09/13/24 18:08 Urine RBC (Auto) 6-10 /hpf (0-2) H 09/13/24 18:08 U Hyaline Cast (Auto) 0-2 /lpf (0-2) 09/13/24 18:08 U Epithel Cells (Auto) 0-2 /hpf (0-2) 09/13/24 18:08 Urine Bacteria (Auto) None Seen (None Seen) 09/13/24 18:08 Urine Comment 09/13/24 18:08 Salicylates < 3.0 mg/dl (3.0-30) L 09/13/24 16:58 Urine Opiates Screen Neg (Neg) 09/13/24 18:08 Ur Methadone, Qual Neg (Neg) 09/13/24 18:08 Urine Fentanyl Screen Neg (Neg) 09/13/24 18:08 Acetaminophen < 3 ug/ml (10-30) L 09/13/24 16:58 Urine Barbiturates Neg (Neg) 09/13/24 18:08 Valproic Acid 20 mcg/ml (50-100) L 09/13/24 16:58 Ur Phencyclidine (PCP) Neg (Neg) 09/13/24 18:08 U Amphetamin/Meth Scrn Neg (Neg) 09/13/24 18:08 MDMA (Ecstasy) Screen Neg (Neg) 09/13/24 18:08 U Benzodiazepines Scrn Neg (Neg) 09/13/24 18:08 Ur Cocaine Metabolite Neg (Neg) 09/13/24 18:08 U Marijuana (THC) Screen Neg (Neg) 09/13/24 18:08 Ethyl Alcohol mg/dL < 10.0 mg/dl (<10.0) 09/13/24 16:58 SARS-CoV-2, RNA, NAAT NEGATIVE (NEGATIVE) 09/13/24 16:40 Impressions Abdomen/Pelvis CT 09/13/24 16:59 EXAM: CT abd pelvis IV con only CLINICAL HISTORY: Mid upper abdominal pain, weak, amparo TECHNIQUE: CT of the abdomen and pelvis was performed with IV contrast, with the following protocol: axial images with, and reconstructed coronal and sagittal images. One of the following dose reduction techniques was utilized for this exam: Automated exposure control, adjustment of the mA and/or kV according to patient size, and use of iterative reconstruction. COMPARISON: 01/13/2019 FINDINGS: Abdomen: Liver: Normal in size, shape, and density. No focal lesions, cysts, or masses were identified. Hepatic vasculature and biliary ducts are unremarkable. Gallbladder and Biliary System: The gallbladder is not seen. The common bile duct is normal in caliber without dilation. Pancreas: Pancreatic head, body, and tail are visualized and appear normal in size and density. No pancreatic masses or calcifications were noted. The pancreatic duct is not dilated. Spleen: Normal in size, shape, and density. No splenic lesions or masses were identified. Appendix: The appendix is normal in size without satya appendiceal fat stranding, and without an appendicolith. No evidence of appendiceal abscess or perforation. Kidneys and Adrenal Glands: Both kidneys are normal in size, shape, and position. Cortical thickness is within normal limits. No renal calculi or hydronephrosis. Adrenal glands are unremarkable with no evidence of masses or hyperplasia. Pelvis: Urinary Bladder: Normal in contour and wall thickness. No intraluminal lesions identified. Uterus: Not seen. Ovaries: Not well visualized but no gross abnormalities noted. Vagina: Normal in contour and wall thickness. Cervix: No evidence of mass or abnormal thickening. Peritoneal and Retroperitoneal Structures: No free fluid or abnormal fluid collections were identified within the abdomen or pelvis. No lymphadenopathy was noted. Bowel: The visualized bowel loops are normal in caliber and appearance. No evidence of bowel obstruction or wall thickening. Bones and Soft Tissues: Pelvic bones and soft tissues are unremarkable. No fractures or abnormal masses were identified. Mild degenerative changes of the spine. Lung bases: Dependent atelectasis in both posterior lung bases. IMPRESSION: No evidence of acute intra-abdominal pathology. No significant change from prior. Electronically signed by Sohan Mathis 09-13-2024 8:08 PM ECG Additional Comments: EKG per my interpretation with normal sinus rhythm at 77 bpm, normal axis, ME = 142, QRS = 78, QTc = 441, no acute ischemic changes, possible age-indeterminate inferior infarct Code Status & VTE Plan VTE Prophylaxis Plan VTE Prophylaxis will be ordered: Yes PG Care Time/CCT Total # of Minutes Spent Total Time Spent with Patient: Total time spent is greater than 50% in coordination of care (as documented) at patient's floor/unit and/or counseling patient: Coding Level of Care Code 17950 INT INP/OBS CARE 3/75MIN Diagnoses Elevated troponin R79.89 HTN (hypertension) I10 Bipolar 1 disorder with moderate amparo F31.12
[2024-09-14 06:32] LABS: Hemoglobin 14.6 g/dl (12.0-16.0); Mean Corpuscular Hemoglobin 27.8 pg (25.0-34.0); Mean Corpuscular Volume 81.7 fL (80.0-100.0); Platelet Count 351 K/uL (130-400); RDW Coefficient of Variation 12.8 % (11.5-14.5); RDW Standard Deviation 37.9 fL (36.4-46.3); Red Blood Count 5.26 M/uL (4.20-5.40); White Blood Count 10.69 K/ul (4.8-10.8)
[2024-09-14 07:02] LABS: Troponin I High Sensitivity 25.7 pg/ml (0-14)
[2024-09-14 08:08] LABS: Calcium 9.2 mg/dl (8.6-10.3); Potassium 3.7 mmol/L (3.5-5.1)
[2024-09-14 08:14] LABS: BUN Creatinine Ratio 19.5 (10-20); Creatinine Clr Calc Pharmacy 87.6 ml/min
[2024-09-14 11:06] VITALS: RESP 17; TEMP 98.1; O2SAT 98
--- NOTE | 2024-09-14 11:07 | Psychiatric Consultation ---
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 She is now medically clear and meets 302 criteria given acute amparo and increasingly dangerous behaviors of trying to run into traffic and run from her home due to psychosis. The patient remains hospitalized on a completed 302 involuntary commitment, which if not extended, will on 09/19/2024 @1230 . This patient must remain on safety precautions with a 1-on-1 and is unable to leave the hospital AMA. Overall, I spent a total of 60 minutes with this case including review of chart records, review of labwork, review of EKG QTc, direct evaluation of the patient at bedside, counseling the patient, discussion of the patient with the Nurse and with the hospitalist provider, discussion with the psychiatric liason during cl inical rounds, review of collateral historian information from the family and documentation in the electronic health record and completion of 302 commitment paperwork. 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: (4) Auditory hallucinations: (5) Insomnia: Plan -Continue 1-on-1 for risk of harm to self due to impulsivity and 302 commitment -Do not discharge or allow to leave AMA she is on a 302 commitment -Plan for psychiatric hospitalization on [facility] later today at which point will start the following: * plan for loading dose of Depakote ER of 750mg HS to control symptoms of amparo * Olanzapine 10mg BID po or IM prn for agitation/amparo * Continue risperidone 1mg BID Psych History Identifying Data Kajal Cadena is a 58 yo woman with a history of bipolar disorder with past episodes of amparo admitted medically due to concern for acute amparo and increased BP and troponin level. Psychiatry consulted for recommendations for amparo. Chief Complaint "There were two De Jesus at the house". History of Present Illness Kajal was brought to the hospital by her family due to concern for worsening episode of amparo with poor sleep, disorganized behaviors and increased paranoia causing her to attempt to get out of the car while they were in a drive through and later running from her home toward a busy street. She identified significant paranoia with psych liason noting concerns that her , Luigi, has been replaced by another Luigi. Seems this drove her to attem pt to jump from the car and leave the house. Today she minimizes some of this with me but also acknowledges that recently there were "two other De Jesus" at her home and that they both looked like her . Initially she stated willingness for voluntary treatment but then changed her mind and was focused on discharging into the care of her brother but she also declined to share where her brother lives. She required IM olanzapine overnight due to agitation and aggression. During that time she reported past significant trauma and concern about male providers and desire to be in "safe space". She also endorsed hearing auditory hallucinations overnight that were telling her "we have the power and you are powerless and you will be killed tonight by a man." She takes Depakote 250mg HS but recently missed a few doses. She also has taken risperidone in the past during episodes of amparo. Further information per ED CM note from 09/13/2024: "Met with pt bedside for full eval. Kajal is very tearful and reserved and expressed that she was very tired and wanted her son to answer most questions for her. Her son complied and Kajal said that if she had anything to add or if she disagreed with anything she would interject. Per Kajal's son, she has been in a manic state for a few days and she has been especially stressed because she had a niece who was very sick with E-Coli and an issue at work with a co-worker that was escalated to HR. Those situations caused Kajal to spiral into a series of not sleeping, not eating, not showering, brushing her teeth/hair for a few days (since ). Kajal's son states that while she was home with her on , she waited until he went to the bathroom and she walked outside and towards the road, stopping at the very end of their drive. He states they live on a very busy road/highway and is concerned that she even had the thought of getting that close to the road. Kajal has also been experiencing AH/VH, her son states that she has been getting memories mixed up and talking to people who are not there. Kajal states that her hallucinations are not command in nature. Kajal's son also states that she has been very paranoid, as she was staning on their back porch yelling for help the other day, even though she was in no danger. Kajal's son states that this is very out of character for her as in her day-to-day she is very put together. Kajal's showed up during the eval and Kajal was taken to CT for imaging as she was complaining of stomach pain. This CM stayed in the room to continue speaking with Kajal's son and he stated that the last time she was in a manic episode and they came to the ED for advice, she got very quiet and reserved as she is now, and instead deflected her MH by complaining of stomach pain. Kajal is dx with PTSD, Bipolar w/ amparo, and depression. Kajal sees a psychiatrist at [facility] (Dr. Gomes) who prescribes her Depakote. Kajal has been IP for MH tx once before about 15-20 years ago. Kajal was brought back into her room and once again states that she would like to stay for IP MH tx. Met with pt bedside with Dr. Smith. Pts son is at bedside with her permission and provides hx as pt is very tearful and hesitant/slow to answer questions. Kajal does not make eye contact and appears very disheveled. Her son states that she has not been sleeping or eating for the past few days. Her son states that she has these manic episodes once every few years, the last one being 2 years ago. Kajal is prescribes Depakote and her son states that it has been a fight to get her to take it the last few days. Kajal's son states that she has been declining for a few weeks but on Saturday it got a lot worse and she has been experiencing AH/VH that are not command in nature but that make her believe that she is someone else temporarily. While in the ED, Kajal is oriented to person. Kajal states that she is not suicidal and that she never wants to hurt herself as "she is not the type of person to do that." Kajal's son states that from experience, he knows that she gives reserved answers in the hospital setting and states that she has made suicidal statements at home recently and has also walked outside and onto the street. Kajal did not deny these statements. Dr. Smith explained the medical clearance process and proposed an IP stay. Kajal nodded her head and expressed interest in staying in the hospital for MH tx." Past Psychiatric History Current Psychiatric Diagnosis: PTSD, Bipolar, depression History of Previous Suicide Attempt: No Allergies Allergy/AdvReac Type Severity Reaction Status Date / Time black cohosh Allergy Unknown HIVES Verified 09/13/24 19:11 methylprednisolone Allergy Unknown Redness of Verified 09/13/24 19:11 Skin clindamycin Allergy Hives Verified 09/13/24 19:11 hydrochlorothiazide Allergy Hives Verified 09/13/24 19:11 lisinopril Allergy Cough Verified 09/13/24 19:11 Home Medications Medication Instructions Recorded Confirmed Type calcium carbonate (Calcium 600) 600 mg PO DAILY 09/27/22 09/13/24 History montelukast 10 mg tablet 10 mg PO HS #90 tabs 02/03/24 09/13/24 Rx cetirizine 10 mg tablet 10 mg PO HS #90 tabs 04/06/24 09/13/24 Rx albuterol sulfate 90 mcg/actuation 1 inh inhalation QID PRN shortness 04/14/24 09/13/24 Rx aerosol inhaler of breath or wheezing #6.7 grams budesonide-formoterol HFA 160 2 puff inhalation Q12H #10.2 grams 05/11/24 09/13/24 Rx mcg-4.5 mcg/actuation aerosol inhaler (Symbicort) ferrous sulfate 325 mg (65 mg 325 mg PO Q OTHER DAY 05/11/24 09/13/24 History iron) tablet divalproex 250 mg tablet,extended 250 mg PO HS 05/25/24 09/13/24 History release 24 hr ergocalciferol (vitamin D2) 1,250 1,250 mcg PO WK 05/25/24 09/13/24 History mcg (50,000 unit) capsule (Vitamin D2) meclizine 25 mg tablet 25 mg PO TID PRN dizziness #14 tabs 05/25/24 09/13/24 Rx carvedilol 12.5 mg tablet 12.5 mg PO BID #60 tabs 08/11/24 09/13/24 Rx Patient History Medical History Cataract UTI (urinary tract infection) COVID-19 Uterine leiomyoma Breast mass Encounter for routine gynecological examination Esophagitis Mood disorder Left flank pain Insomnia Hallucinations History of adenomatous polyp of colon Asthma Endometriosis Chest pain Surgical History S/P bilateral salpingo-oophorectomy Status post laparoscopic supracervical hysterectomy S/P cholecystectomy History of sinus surgery History of nasal septoplasty History of breast biopsy History of laparoscopy endometriosis with laser Family History Mother Hypertension Asthma Malignant neoplasm of uterus Brother Hypertension Grandmother Diabetes Father Kidney stones Myocardial infarction Family/Other Osteoporosis Grandfather (Maternal) Myocardial infarction Other Cancer Heart disease Denies family history of Ovarian cancer Prostate cancer Breast cancer Colorectal cancer Social History Smoking Status: Never smoker Do You Dip or Chew Tobacco: No; Hx Alcohol Use: No Hx Substance Use: No Preferred Language: Maori Communication Ability: Effective Visual Impairment: No Limitations Hearing Ability: Normal Bone Grinder Required: No Beliefs That Will Affect Care: None marital status: Current Living Situation: Spouse Current Living Situation Comment: House With current occupational status: employed Feels Safe at Home: No Childhood Exposure to Second-Hand Smoke: No Dental Care, Regularly: Yes Physical Activity Frequency: 3-4 Times per Week Seatbelt Use: always Sunscreen Use: Yes Gender Identity: Female Physical Exam Psychiatric: Affect: + labile affect Mood: + anxious mood Thought Content: + paranoid and + delusions Suicidal Thoughts: denies suicidal thoughts Homicidal Thoughts: denies homicidal thoughts Hallucinations: + auditory hallucinations Insight: + poor insight Judgment: + poor judgement Vital Signs (Past 24 Hours): Last Vital Signs Temp 36.7 C 09/14/24 11:05 Pulse 87 09/14/24 11:05 Resp 17 09/14/24 11:05 BP 160/90 H 09/14/24 11:05 Pulse Ox 98 09/14/24 11:05 O2 Del Method Room Air 09/14/24 11:05 Results & Data (PSY) Medications Administered Carvedilol (Carvedilol 12.5 Mg Tab) 12.5 mg PO BID [facility] Stop: 10/14/24 08:59 Last Admin: 09/14/24 08:45 Dose: 12.5 mg Documented By: GERALDINE Divalproex Sodium (Divalproex Extended Release 250 Mg Tabcr) 250 mg PO HS [facility] Stop: 10/13/24 23:45 Last Admin: 09/14/24 00:39 Dose: 250 mg Documented By: MARY Enoxaparin Sodium (Enoxaparin Inj 40 Mg/0.4 Ml Syr) 40 mg SQ Q24H [facility] Stop: 10/14/24 08:59 Last Admin: 09/14/24 08:45 Dose: 40 mg Documented By: GERALDINE Fluticasone/Vilanterol (Fluticasone/Vilanterol 200/25mcg 14 Puffs/Inhaler) 1 puffs INH DAILY [facility]; Protocol Stop: 10/14/24 08:59 Last Admin: 09/14/24 08:55 Dose: Not Given Documented By: GERALDINE Risperidone (Risperidone 1 Mg Tablet) 1 mg PO BID [facility] Stop: 10/13/24 23:45 Last Admin: 09/14/24 08:45 Dose: 1 mg Documented By: Admin: 09/14/24 00:39 Dose: 1 mg Documented By: MARY Coding Level of Care Code 49131 IN/OBS CONSULT LVL 4,60M Diagnoses Bipolar disorder, curr episode mixed, severe, with psychotic features F31.64 Psychotic disorder with delusions F29 Capgras delusion F22 Auditory hallucinations R44.0 Insomnia G47.00
--- NOTE | 2024-09-14 13:00 | Discharge Summary ---
Discharge Summary Date of Service September 14, 2024 Principal Dx & Hospital Course #1 = Principal Diagnosis (1) Elevated troponin: (2) HTN (hypertension): (3) Bipolar 1 disorder with moderate amparo: Plan 58-year-old female with history of hypertension, bipolar/depression presenting with several weeks of progressive amparo symptoms. Patient has not been taking her medications. Has not been eating, drinking or sleeping. #Elevated troponin With persistent mild elevation of troponin that peaked at 35 and then down trended. Without chest pain, palpitations, shortness of breath. EKG w/o signs of ischemia Blood pressure elevated secondary to not taking medicationspossible demand ischemia in the setting of elevated BP Recent stress echo 06/2024 negative for stress-induced myocardial ischemia. Trace to mild mitral regurgitation, trace aortic regurgitation, trace tricuspid regurgitation 2D echo completed, report pending but presume this to be similar to her echocardiogram 2 months ago #Hypertension Continue home carvedilol 12.5 mg twice daily Continue to monitor on the inpatient behavioral health unit #Bipolar 1 with suspected amparo Has not been taking her medications Continue home Depakote, Risperdal twice daily added upon admission Psychiatry consultedrecommending inpatient psychiatric stay. She will be discharged to the inpatient psych unit #Asthmacontinue home medications Discussed with Dr. Saab that Kajal will be transferred to the inpatient psychiatric unit and discharged from our services. updated at bedside. Admission HPI Per Admitting Provider Kajal Cadena is a 58-year-old female with history of hypertension, bipolar disorder, PTSD and depression presenting from home with her and son with complaint of possible amparo. Patient with elevated troponin as well as high blood pressure. Medical admission necessary prior to transfer to psychiatric llamas. History obtained from patient as well as family at bedside Patient with longstanding history of bipolar disorder. She takes Depakote 250 mg p.o. nightly. She follows with Dr. Gomes at [facility]. overall she is fairly well-controlled. She has had manic episodes in the past, last being approximately 2 years ago. Family states that over the last several weeks patient has been acting more manic. She has not been taking her medications. She has not been sleeping. She has been wandering around. Patient states that she "has a lot going on" but is unable to state specifics of what is going on in her life. Son also endorses the patient has been experiencing visual and auditory hallucinations both when she is manic as well as when she is experiencing depressed symptoms. She talks to people that are not there and occasionally sees people that are not present. Patient and family state that she has not been eating for the last several days. Patient's symptoms began to acutely worsen around September 09- and were fairly severe starting September 12. Son states that this particular episode is worse than before as patient is experiencing worse hallucinations and is less compliant and less directable than previous episodes. Son feels that she is a danger to herself. Patient did voice some suicidal thoughts prior to arrival asking her son if he had a gun so she could just shoot herself. Son also states the patient was wandering towards the busy street earlier today. Patient denies depressed symptoms, suicidal or homicidal ideations. Denies visual and auditory hallucinations Son states that patient comes quite guarded when questioned by medical personnel and often withholds information. Additionally, she is complaining of some nausea as well as generalized weakness. Also with some lower abdominal discomfort on occasion. She denies chest pain, cough, shortness of breath, palpitations, vomiting, diarrhea, urinary symptoms. In the ER patient afebrile, blood pressure initially quite elevated at 180 mmHg. She does have mild elevation of troponin = 26.6--> 35.5 ER course: Carvedilol 12.5 mg p.o. Normal saline 500 mL Discharge Exam General: no acute distress; non-toxic appearing; well-nourished; cooperative HEENT: normocephalic, atraumatic; no scleral icterus; PERRLA w/ EOMs intact; vision and hearing grossly intact Skin: warm, dry without signs of tenting; no cyanosis; no rashes, bruising, lesions, or erythema noted Lungs: no acute respiratory distress; symmetrical chest wall expansion Neuro: A&Ox3 Discharge Plan Discharge Items Patient Disposition: Transfer Behavioral Health Fac Reason For Visit: AMPARO, ELEVATED TROPONIN Discharge Diagnosis: Amparo, hypertension Condition on Discharge: Fair Activity: Resume your previous activity Non-emergency contact: Primary Care Provider and Psychiatrist Call non-emergency contact if: you have any medication questions and your symptoms worsen Follow-up/Referrals: Shai Cevallos MD [Primary Care Provider] - Diet: Regular Addtl Attending Provider Instructions: Mrs. Cadena, You were currently hospitalized for exhibiting symptoms of amparo secondary to your bipolar disorder. You were admitted in the medical side for high blood pressure due to not taking your medications at home. When this medication was resumed, your blood pressure stabilized. [facility] [place]! Pending Studies at Discharge: Yes Studies:: final read of echo Stand-Alone Forms: My [facility] Medications and DC Order Prescriptions: Continued montelukast 10 mg tablet 10 mg PO HS Qty: 90 3RF cetirizine 10 mg tablet 10 mg PO HS Qty: 90 3RF albuterol sulfate 90 mcg/actuation HFA aerosol inhaler 1 inh INH QID PRN (Reason: shortness of breath or wheezing) Qty: 6.7 3RF carvedilol 12.5 mg tablet 12.5 mg PO BID Qty: 60 5RF Rx Instructions: must administer with a meal/food calcium carbonate [Calcium 600] 600 mg calcium (1,500 mg) tablet 600 mg PO DAILY ferrous sulfate 325 mg (65 mg iron) tablet 325 mg PO Q OTHER DAY budesonide-formoterol [Symbicort] 160-4.5 mcg/actuation HFA aerosol inhaler 2 puff inhalation Q12H Qty: 10.2 1RF ergocalciferol (vitamin D2) [Vitamin D2] 1,250 mcg (50,000 unit) capsule 1,250 mcg PO WK Rx Instructions: Patient takes on Sundays divalproex 250 mg tablet extended release 24 hr 250 mg PO HS meclizine 25 mg tablet 25 mg PO TID PRN (Reason: dizziness) Qty: 14 0RF Discharge Orders: Discharge Order (Routine); Ordered 09/14/24 Ordered By: Malaika Oliveira Admission Data Admit Date/Time: 09/13/24 20:16 Attending Provider: Keith Nixon Admit Provider: Sugey Gongora Primary Care Provider: Shai Cevallos V. Other Providers: Eduarda Pulliam; Obdulio Leigh; Anastasia Mathis; Serene Spencer; Fazal Sesay; Lisa Felix; Sugey Gongora Other Interventions: Discharge Summary Assessment (RN) Last Done: 09/14/24 13:09 Hospital Stay Data Consultations 09/13/24 20:05 ED Decision to Admit Stat 09/13/24 20:16 Consult Psychiatry Routine Diagnostic Imagining Performed 09/13/24 16:59 CT abd pelvis IV con only Stat Pending Results Patient Have Any Pending Studies at Discharge: Yes Discharge Instructions Given to Patient (Per Discharging Provider) Mrs. Cadena, You were currently hospitalized for exhibiting symptoms of amparo secondary to your bipolar disorder. You were admitted in the medical side for high blood pressure due to not taking your medications at home. When this medication was resumed, your blood pressure stabilized. [facility] [place]! Total Time Total Time Spent Total Time Spent (In Minutes): 40 Total Time Includes: Examination of the Patient, Discharge Planning, Medication Reconciliation and Communication With Other Providers Coding Level of Care Code 06933 INP/OBS DISCH >30 MIN Diagnoses Elevated troponin R79.89 HTN (hypertension) I10 Bipolar 1 disorder with moderate amparo F31.12
[2024-09-14 13:11] VITALS: BP 137/83; PULSE 92
--- NOTE | 2024-09-15 07:26 | Electrocardiogram Report ---
Test Reason : Blood Pressure : */* mmHG Vent. Rate : 77 BPM Atrial Rate : 77 BPM P-R Int : 142 ms QRS Dur : 78 ms QT Int : 390 ms P-R-T Axes : -15 -6 -12 degrees QTcB Int : 441 ms Normal sinus rhythm Inferior infarct , age undetermined Abnormal ECG When compared with ECG of 25-May-2024 17:38, Premature atrial complexes are no longer Present Confirmed by Anitra Stack (Perlita) on 09/15/2024 7:26:12 AM Referred By: REFERRED SELF Confirmed By: Anitra Stack
== END 2024-09-14 14:38 ==
LOC: ED 16:32 → SUATTDRO 20:16 → 2W 20:16

== ENCOUNTER 2024-09-14 13:06 | Inpatient (IN) ==
[2024-09-14 20:38] VITALS: RESP 18
--- NOTE | 2024-09-14 23:18 | History & Physical ---
Date of Service September 14, 2024 Impression / Recommendations Impression TEMI SANDERS is a 58-year-old woman who currently lives in [place] with her , has a history of BPAD, and was admitted on 09/14/24 14:38 on a 302 involuntary commitment for acute amparo with recent dangerous impulsive behaviors and paranoia. Diagnostically consistent with bipolar affective disorder current mixed or manic episode with psychosis. MNPR due to paranoia with psychosis Overall I spent a total of 80 minutes for this admission including review of chart records, review of labwork, direct evaluation of the patient,ordering medication, risk assessment, discussion with the psychiatric liason RN and documentation in the electronic health record. 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 ([facility] unit) on q15 min checks (behavioral with suicide precautions) for safety. The patient will participate in group, recreational, and milieu therapies and will be offered additional individual and family sessions as clinically appropriate. -Depakote 750mg HS loading dose for amparo -risperidone 1mg BID po -Olanzapine 10mg BID prn po/IM for agitation/aggression -fasting lipid panel, HbA1c, Vit D tomorrow AM Updated: following new chest pain and EKG changes: -consult hospitalist -hold psychiatric medications for now -for acute behavioral emergency: * if cardiac status is stable and QTc is <500ms: olanzapine 10mg IM * if cardiac concerns or QTc is >500ms: ativan 1mg IV or IM -on medical floor would require 1-on-1 and safety precautions as she remains on a completed 302 commitment -she cannot leave the hospital, call security if she attempts to do so -psychiatry consult service to follow given likely plan for repeat medical admission Inventory Assets Strengths: supportive family, outpatient providers, long-term outpatient stability Needs: medication adjustment, safety and stabilization, increased coping skills, sleep promotion Suicide Risk Level Suicide Risk Level: Moderate (q15 min suicide checks) (amparo vs mixed episode with recent impulsive and dangerous behaviors seemingly driven by paranoia and delusions, denies SI and feels able to ask nurses/female staff for support ) Risk Factors Assessment Male: No : Yes Do You Have Access To A Gun?: No Health Problems: Yes Mental Health Diagnoses: Yes Substance Use Disorders: No Previous Attempt: Yes Previous Psychiatric Hospitalization: Yes Hopelessness: No Protective Factors Assessment : Yes Stable Relationships: Yes Supportive Family: Yes Good Rapport with Provider: Yes Psychiatric History Identifying Data TEMI SANDERS is a 58-year-old woman who currently lives in [place] with her , has a history of BPAD, and was admitted on 09/14/24 14:38 on a 302 involuntary commitment for acute amparo with recent dangerous impulsive behaviors and paranoia. Chief Complaint "Hi". History of Present Illness Temi was admitted from the medical service on a 302 commitment for amparo with concerning behaviors. Additional information per my initial consult earlier this morning: "Temi was brought to the hospital by her family due to concern for worsening episode of amparo with poor sleep, disorganized behaviors and increased paranoia causing her to attempt to get out of the car while they were in a drive through and later running from her home toward a busy street. She identified significant paranoia with psych liason noting concerns that her , Luigi, has been replaced by another Luigi. Seems this drove her to attempt to jump from the car and leave the house. Today she minimizes some of this with me but also acknowledges that recently there were "two other Liza" at her home and that they both looked like her . Initially she stated willingness for voluntary treatment but then changed her mind and was focused on discharging into the care of her brother but she also declined to share where her brother lives. She required IM olanzapine overnight due to agitation and aggression. During that time she reported past significant trauma and concern about male providers and desire to be in "safe space". She also endorsed hearing auditory hallucinations overnight that were telling her "we have the power and you are powerless and you will be killed tonight by a man." She takes Depakote 250mg HS but recently missed a few doses. She also has taken risperidone in the past during episodes of amparo." Further information per ED CM note from 09/13/2024: "Met with pt bedside for full eval. Temi is very tearful and reserved and expressed that she was very tired and wanted her son to answer most questions for her. Her son complied and Temi said that if she had anything to add or if she disagreed with anything she would interject. Per Temi's son, she has been in a manic state for a few days and she has been especially stressed because she had a niece who was very sick with E-Coli and an issue at work with a co-worker that was escalated to HR. Those situations caused Temi to spiral into a series of not sleeping, not eating, not showering, brushing her teeth/hair for a few days (since ). Temi's son states that while she was home with her on , she waited until he went to the bathroom and she walked outside and towards the road, stopping at the very end of their drive. He states they live on a very busy road/highway and is concerned that she even had the thought of getting that close to the road. Temi has also been experiencing AH/VH, her son states that she has been getting memories mixed up and talking to people who are not there. Temi states that her hallucinations are not command in nature. Temi's son also states that she has been very paranoid, as she was staning on their back porch yelling for help the other day, even though she was in no danger. Temi's son states that this is very out of character for her as in her day-to-day she is very put together. Temi's showed up during the eval and Temi was taken to CT for imaging as she was complaining of stomach pain. This CM stayed in the room to continue speaking with Temi's son and he stated that the last time she was in a manic episode and they came to the ED for advice, she got very quiet and reserved as she is now, and instead deflected her MH by complaining of stomach pain. Temi is dx with PTSD, Bipolar w/ amparo, and depression. Temi sees a psychiatrist at [facility] (Dr. Gomes) who prescribes her Depakote. Temi has been IP for MH tx once before about 15-20 years ago. Temi was brought back into her room and once again states that she would like to stay for IP MH tx. Met with pt bedside with Dr. Smith. Pts son is at bedside with her permission and provides hx as pt is very tearful and hesitant/slow to answer questions. Temi does not make eye contact and appears very disheveled. Her son states that she has not been sleeping or eating for the past few days. Her son states that she has these manic episodes once every few years, the last one being 2 years ago. Temi is prescribes Depakote and her son states that it has been a fight to get her to take it the last few days. Temi's son states that she has been declining for a few weeks but on Saturday it got a lot worse and she has been experiencing AH/VH that are not command in nature but that make her believe that she is someone else temporarily. While in the ED, Temi is oriented to person. Temi states that she is not suicidal and that she never wants to hurt herself as "she is not the type of person to do that." Temi's son states that from experience, he knows that she gives reserved answers in the hospital setting and states that she has made suicidal statements at home recently and has also walked outside and onto the street. Temi did not deny these statements. Dr. Smith explained the medical clearance process and proposed an IP stay. Temi nodded her head and expressed interest in staying in the hospital for MH tx." After arriving to the behavioral health unit she was noted to be demonstrating paranoia and referenced a belief that Junior Royal would be coming to pick her up and take her away. She was unable to tolerate groups. Past Psychiatric History Current Psychiatric Diagnosis: bipolar disorder Outpatient Services: Outpatient psychiatry with Dr. Gomes at [facility] Previous Psych Admissions: one prior hospitalization about 15-20 years ago Do You Have Access To A Gun?: No History of Previous Suicide Attempt: Yes Past Medication Trials: risperidone beneficial in the past for amparo Allergies Allergy/AdvReac Type Severity Reaction Status Date / Time black cohosh Allergy Unknown HIVES Verified 09/13/24 19:11 methylprednisolone Allergy Unknown Redness of Verified 09/13/24 19:11 Skin clindamycin Allergy Hives Verified 09/13/24 19:11 hydrochlorothiazide Allergy Hives Verified 09/13/24 19:11 lisinopril Allergy Cough Verified 09/13/24 19:11 Home Medications Medication Instructions Recorded Confirmed Type calcium carbonate (Calcium 600) 600 mg PO DAILY 09/27/22 09/13/24 History montelukast 10 mg tablet 10 mg PO HS #90 tabs 02/03/24 09/13/24 Rx cetirizine 10 mg tablet 10 mg PO HS #90 tabs 04/06/24 09/13/24 Rx albuterol sulfate 90 mcg/actuation 1 inh inhalation QID PRN shortness 04/14/24 09/13/24 Rx aerosol inhaler of breath or wheezing #6.7 grams budesonide-formoterol HFA 160 2 puff inhalation Q12H #10.2 grams 05/11/24 09/13/24 Rx mcg-4.5 mcg/actuation aerosol inhaler (Symbicort) ferrous sulfate 325 mg (65 mg 325 mg PO Q OTHER DAY 05/11/24 09/13/24 History iron) tablet divalproex 250 mg tablet,extended 250 mg PO HS 05/25/24 09/13/24 History release 24 hr ergocalciferol (vitamin D2) 1,250 1,250 mcg PO WK 05/25/24 09/13/24 History mcg (50,000 unit) capsule (Vitamin D2) meclizine 25 mg tablet 25 mg PO TID PRN dizziness #14 tabs 05/25/24 09/13/24 Rx carvedilol 12.5 mg tablet 12.5 mg PO BID #60 tabs 08/11/24 09/13/24 Rx Family History Family History of: Refuses To Discuss Alcohol History Hx of Alcohol Use Over the Past 12 Months: No AUDIT Total Score: 0 Smoking Use Have You Smoked or Used Tobacco Products in the Last 30 Days: No Smoking Status: Never smoker Smoking packs per day: 0 Substance History Hx of Prescription Med Misuse Over the Past 12 Months: No Hx of Over the Counter Med Misuse Over the Past 12 Months: No Hx of Inhalent Misuse Over the Past 12 Months: No Hx of Organic Substance Use Over the Past 12 Months: No Hx of Illegal Substances/Street Drug Use Over Past 12 Months: No Problems as a Result of Past Substance Use: None Identified Personal History Beliefs That Will Affect Care: Spiritual Patient History Medical History Cataract UTI (urinary tract infection) COVID-19 Uterine leiomyoma Breast mass Encounter for routine gynecological examination Esophagitis Mood disorder Left flank pain Insomnia Hallucinations History of adenomatous polyp of colon Asthma Endometriosis Chest pain Surgical History S/P bilateral salpingo-oophorectomy Status post laparoscopic supracervical hysterectomy S/P cholecystectomy History of sinus surgery History of nasal septoplasty History of breast biopsy History of laparoscopy endometriosis with laser Family History Mother Hypertension Asthma Malignant neoplasm of uterus Brother Hypertension Grandmother Diabetes Father Kidney stones Myocardial infarction Family/Other Osteoporosis Grandfather (Maternal) Myocardial infarction Other Cancer Heart disease Denies family history of Ovarian cancer Prostate cancer Breast cancer Colorectal cancer Social History Smoking Status: Never smoker Do You Dip or Chew Tobacco: No; Hx Alcohol Use: No Hx Substance Use: No Preferred Language: Kyrgyz Communication Ability: Effective Visual Impairment: No Limitations Hearing Ability: Normal [employer]ou[employer] Required: No Beliefs That Will Affect Care: Spiritual marital status: Current Living Situation: Spouse Current Living Situation Comment: House With current occupational status: employed Feels Safe at Home: Yes Childhood Exposure to Second-Hand Smoke: No Dental Care, Regularly: Yes Physical Activity Frequency: 3-4 Times per Week Seatbelt Use: always Sunscreen Use: Yes Gender Identity: Female Assistive Devices: None Review of Systems Review of Systems: Unobtainable due to mental health condition Physical Exam Psychiatric: Orientation: alert and oriented x 3 Apperance: appropriately dressed Eye Contact: + fair eye contact Motor Behavior: no abnormal motor movements Speech: + abnormal rate/rhythm/volume of speech (slow at times) Affect: + labile affect Mood: + anxious mood Thought Process: + thought blocking and + circumstantial thought process Thought Content: + paranoid and + delusions Suicidal Thoughts: denies suicidal thoughts Homicidal Thoughts: denies homicidal thoughts Hallucinations: + auditory hallucinations; no visual hallucinations Insight: + poor insight Judgment: + limited judgement Vital Signs (Past 24 Hours): Last Vital Signs Pulse 94 H 09/14/24 20:37 Resp 18 09/14/24 20:37 BP 138/87 09/14/24 20:37 Pulse Ox 98 09/14/24 16:19 O2 Del Method Room Air 09/14/24 16:19 Exam Statement: A physical exam was performed on the medical floor by Malaika CHUNG and Dr. Nixon for the purposes of medical clearance. I accept that physical as correct and adequate for the purposes of the inpatient physical exam. Results & Data ([facility]) Current Inpatient Medications Current Inpatient Medications: Current Inpatient Medications Acetaminophen (Acetaminophen 325 Mg Tab) 650 mg PO Q4H PRN PRN Reason: Headache or Minor Fever Stop: 10/14/24 13:52 Al Hydrox/Mg Hydrox/Simethicone (Aluminum/Magnesium Susp 30 Ml Udc) 30 ml PO Q4H PRN PRN Reason: GI Upset Stop: 10/14/24 13:52 Albuterol (Albuterol Hfa 8 Gm Inhaler) 1 puffs INH QID PRN PRN Reason: shortness of breath or wheezing Stop: 10/14/24 15:42 Bismuth Subsalicylate (Bismuth Subsalicylate 262 Mg Chew) 2 tab PO Q30M PRN PRN Reason: Loose Stool/Diarrhea Stop: 10/14/24 13:52 Calcium Carbonate (Calcium Carbonate 1250mg Tab) 1 tab PO DAILY KEN Stop: 10/15/24 08:59 Carvedilol (Carvedilol 12.5 Mg Tab) 12.5 mg PO BID KEN Stop: 10/14/24 20:59 Last Admin: 09/14/24 20:40 Dose: 12.5 mg Cetirizine HCl (Cetirizine Hcl 10 Mg Tablet) 10 mg PO HS KEN Stop: 10/14/24 21:59 Last Admin: 09/14/24 20:40 Dose: 10 mg Divalproex Sodium (Divalproex Extended Release 250 Mg Tabcr) 750 mg PO HS KEN Stop: 10/14/24 21:59 Last Admin: 09/14/24 20:41 Dose: 750 mg Ergocalciferol (Ergocalciferol 1250 Mcg (50,000 Units) Cap) 1,250 mcg PO [place]@0900 KEN Stop: 10/14/24 16:14 Last Admin: 09/14/24 20:40 Dose: 1,250 mcg Ferrous Sulfate (Ferrous Sulfate 325 Mg Tab) 325 mg PO Q2D@0900 KEN Stop: 10/16/24 08:59 Fluticasone/Vilanterol (Fluticasone/Vilanterol 100/25mcg 14 Puffs/Inhaler) 1 puffs INH DAILY KEN; Protocol Stop: 10/15/24 08:59 Hydroxyzine HCl (Hydroxyzine Hcl 25 Mg Tab) 50 mg PO HSZ PRN PRN Reason: Insomnia Stop: 10/14/24 13:52 Hydroxyzine HCl (Hydroxyzine Hcl 25 Mg Tab) 25 mg PO Q4H PRN PRN Reason: Anxiety Stop: 10/14/24 13:52 Magnesium Hydroxide (Magnesium Hydroxide Susp 30 Ml Udc) 30 ml PO DAILY PRN PRN Reason: Constipation Stop: 10/14/24 13:52 Montelukast Sodium (Montelukast Sodium 10 Mg Tablet) 10 mg PO HS KEN Stop: 10/14/24 21:59 Last Admin: 09/14/24 20:40 Dose: 10 mg Olanzapine (Olanzapine 10 Mg Tab) 10 mg PO BID PRN PRN Reason: Agitation/amparo Stop: 10/14/24 20:59 Olanzapine (Olanzapine 10 Mg/2.1 Ml Sdv) 10 mg IM BID PRN PRN Reason: aggression Stop: 10/14/24 20:59 Risperidone (Risperidone 1 Mg Tablet) 1 mg PO BID KEN Stop: 10/14/24 20:59 Last Admin: 09/14/24 20:40 Dose: 1 mg Sodium Chloride (Sodium Chloride 0.65% Na Soln 45 Ml ([place])) 1 - 2 sprays NA PRN PRN PRN Reason: Nasal Dryness/Congestion Stop: 10/14/24 13:52
--- NOTE | 2024-09-14 23:26 | Discharge Summary ---
Date of Service September 14, 2024 History of Present Illness Kajal was admitted from the medical service on a 302 commitment for amparo with concerning behaviors. Additional information per my initial consult earlier this morning: "Kajal was brought to the hospital by her family due to concern for worsening episode of amparo with poor sleep, disorganized behaviors and increased paranoia causing her to attempt to get out of the car while they were in a drive through and later running from her home toward a busy street. She identified significant paranoia with psych liason noting concerns that her , Luigi, has been replaced by another Luigi. Seems this drove her to attempt to jump from the car and leave the house. Today she minimizes some of this with me but also acknowledges that recently there were "two other Liza" at her home and that they both looked like her . Initially she stated willingness for voluntary treatment but then changed her mind and was focused on discharging into the care of her brother but she also declined to share where her brother lives. She required IM olanzapine overnight due to agitation and aggression. During that time she reported past significant trauma and concern about male providers and desire to be in "safe space". She also endorsed hearing auditory hallucinations overnight that were telling her "we have the power and you are powerless and you will be killed tonight by a man." She takes Depakote 250mg HS but recently missed a few doses. She also has taken risperidone in the past during episodes of amparo." Further information per ED CM note from 09/13/2024: "Met with pt bedside for full eval. Kajal is very tearful and reserved and expressed that she was very tired and wanted her son to answer most questions for her. Her son complied and Kajal said that if she had anything to add or if she disagreed with anything she would interject. Per Kajal's son, she has been in a manic state for a few days and she has been especially stressed because she had a niece who was very sick with E-Coli and an issue at work with a co-worker that was escalated to HR. Those situations caused Kajal to spiral into a series of not sleeping, not eating, not showering, brushing her teeth/hair for a few days (since ). Kajal's son states that while she was home with her on , she waited until he went to the bathroom and she walked outside and towards the road, stopping at the very end of their drive. He states they live on a very busy road/highway and is concerned that she even had the thought of getting that close to the road. Kajal has also been experiencing AH/VH, her son states that she has been getting memories mixed up and talking to people who are not there. Kajal states that her hallucinations are not command in nature. Kajal's son also states that she has been very paranoid, as she was staning on their back porch yelling for help the other day, even though she was in no danger. Kajal's son states that this is very out of character for her as in her day-to-day she is very put together. Kajal's showed up during the eval and Kajal was taken to CT for imaging as she was complaining of stomach pain. This CM stayed in the room to continue speaking with Kajal's son and he stated that the last time she was in a manic episode and they came to the ED for advice, she got very quiet and reserved as she is now, and instead deflected her MH by complaining of stomach pain. Kajal is dx with PTSD, Bipolar w/ amparo, and depression. Kajal sees a psychiatrist at [facility] (Dr. Gomes) who prescribes her Depakote. Kajal has been IP for MH tx once before about 15-20 years ago. Kajal was brought back into her room and once again states that she would like to stay for IP MH tx. Met with pt bedside with Dr. Smith. Pts son is at bedside with her permission and provides hx as pt is very tearful and hesitant/slow to answer questions. Kajal does not make eye contact and appears very disheveled. Her son states that she has not been sleeping or eating for the past few days. Her son states that she has these manic episodes once every few years, the last one being 2 years ago. Kajal is prescribes Depakote and her son states that it has been a fight to get her to take it the last few days. Kajal's son states that she has been declining for a few weeks but on Saturday it got a lot worse and she has been experiencing AH/VH that are not command in nature but that make her believe that she is someone else temporarily. While in the ED, Kajal is oriented to person. Kajal states that she is not suicidal and that she never wants to hurt herself as "she is not the type of person to do that." Kajal's son states that from experience, he knows that she gives reserved answers in the hospital setting and states that she has made suicidal statements at home recently and has also walked outside and onto the street. Kajal did not deny these statements. Dr. Smith explained the medical clearance process and proposed an IP stay. Kajal nodded her head and expressed interest in staying in the hospital for MH tx." After arriving to the behavioral health unit she was noted to be demonstrating paranoia and referenced a belief that Junior Royal would be coming to pick her up and take her away. She was unable to tolerate groups. Physical Exam Vital Signs (Past 24 Hours) Last Vital Signs Pulse 94 H 09/14/24 20:37 Resp 18 09/14/24 20:37 BP 138/87 09/14/24 20:37 Pulse Ox 98 09/14/24 16:19 O2 Del Method Room Air 09/14/24 16:19 Principal Diagnosis Bipolar affective disorder current episode of amparo, Atrial fibrillation with rapid ventricular rate Psychiatric Data Kajal was admitted on the afternoon of 09/14/2024 from the medical floor on a 302 commitment for acute amparo. That evening she endorsed increased chest pain and an EKG was ordered which showed atrial fibrillation with rapid ventricular r ate. A hospitalist consult was placed and recommendation is for medical admission. Plan for psychiatry consult service to continue to follow her while she is admitted to the medical floor. Likely will require inpatient psychiatric hospitalization once she is medically clear. Day of Discharge Assessment Ongoing amparo with paranoia, grandiose delusions, poor insight. Transition of Care Transition Of Care Record: was reviewed with the patient (discussed during admission that records to be shared based on ROIs, unable to discuss at time of discharge due to need for urgent medical admission) Advance Directives Advance Directives Information Provided: Yes Advance Directives: No Mental Health Advance Directive: No Advance Directives on File: No Living Will: No Power of Pharmacist Intern: No Advance Directives Reason:: Declines as Mental Health Visit. Suicide Risk Level Suicide Risk Level Comments: Acute risk is moderate given amparo vs possible mixed episode though she denies SI. 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: (5) HTN (hypertension): (6) Afib: Plan Updated on night of 09/14/2024 following new chest pain and EKG changes: -consulted hospitalist, plan for medical admission -hold psychiatric medications for now -for acute behavioral emergency: * if cardiac status is stable and QTc is <500ms: olanzapine 10mg IM * if cardiac concerns or QTc is >500ms: ativan 1mg IV or IM -on medical floor would require 1-on-1 and safety precautions as she remains on a completed 302 commitment -she cannot leave the hospital due to ongoing 302 commitment, call security if she attempts to do so -psychiatry consult service to follow given likely plan for repeat medical admission 09/14/2024: The patient was admitted to the [facility]) on q15 min checks (behavioral with suicide precautions) for safety. The patient will participate in group, recreational, and milieu therapies and will be offered additional individual and family sessions as clinically appropriate. -Depakote 750mg HS loading dose for amparo -risperidone 1mg BID po -Olanzapine 10mg BID prn po/IM for agitation/aggression Discharge Plan Discharge Items Patient Disposition: Transfer Acute Care Hospital Reason For Visit: BIPOLAR DISORDER UNSPECIFIED Discharge Diagnosis: Bipolar Affective Disorder current amparo, new atrial fibrillation with rapid rita tricular rate Activity: As commented below Activity Comment: per hospitalist team as will be going to medical floor due to afib Non-emergency contact: Primary Care Provider Call non-emergency contact if: you have any medication questions and your symptoms worsen Follow-up/Referrals: Shai Cevallos MD [Primary Care Provider] - Diet: Regular Addtl Attending Provider Instructions: Kajal remains on a 302 commitment for acute amparo in setting of bipolar affective disorder. Given new chest pain and afib with rapid heart rate she will be discharged and admitted to the medical service for further management of her cardiac symptoms. Once she is medically clear she can then be treated again in an inpatient psychiatric setting for amparo. Pending Studies at Discharge: No Stand-Alone Forms: My [facility] Skilled Items Patient informed of condition?: Yes DNR: No Discharge Level of Care: Other Communicable Disease: No Discharge Prognosis: Deteriorating Lines: None Urinary Catheter: No Medications and DC Order Prescriptions: Continued montelukast 10 mg tablet 10 mg PO HS Qty: 90 3RF cetirizine 10 mg tablet 10 mg PO HS Qty: 90 3RF albuterol sulfate 90 mcg/actuation HFA aerosol inhaler 1 inh INH QID PRN (Reason: shortness of breath or wheezing) Qty: 6.7 3RF carvedilol 12.5 mg tablet 12.5 mg PO BID Qty: 60 5RF Rx Instructions: must administer with a meal/food calcium carbonate [Calcium 600] 600 mg calcium (1,500 mg) tablet 600 mg PO DAILY ferrous sulfate 325 mg (65 mg iron) tablet 325 mg PO Q OTHER DAY budesonide-formoterol [Symbicort] 160-4.5 mcg/actuation HFA aerosol inhaler 2 puff inhalation Q12H Qty: 10.2 1RF ergocalciferol (vitamin D2) [Vitamin D2] 1,250 mcg (50,000 unit) capsule 1,250 mcg PO WK Rx Instructions: Patient takes on Sundays divalproex 250 mg tablet extended release 24 hr 250 mg PO HS meclizine 25 mg tablet 25 mg PO TID PRN (Reason: dizziness) Qty: 14 0RF Discharge Orders: Discharge Order (Routine); Ordered 09/14/24 Ordered By: Eduarda Pulliam Admission Data Admit Date/Time: 09/14/24 14:38 Attending Provider: Eduarda Pulliam Admit Provider: Eduarda Pulliam Primary Care Provider: Shai Cevallos V. Other Providers: Tg Hammond Coding Level of Care Code 36653 D/C day mgmt 30 min or < Diagnoses Bipolar disorder, curr episode mixed, severe, with psychotic features F31.64 Bipolar I disorder with amparo F31.10 Capgras delusion F22 Psychotic disorder with delusions F29 HTN (hypertension) I10 Afib I48.91
[2024-09-14 23:31] VITALS: BP 99/68; O2SAT 97
[2024-09-14 23:44] LABS: Base Excess VBG -0.1 mEq/L; HCO3 VBG 24 mmol/L; Oxygen Saturation VBG 75.1 %; PCO2 VBG 36 mmHg (38-50); PO2 VBG 45 mmHg; pH VBG 7.43 (7.36-7.41)
[2024-09-14 23:49] LABS: Basophils # (auto) 0.05 K/uL (0.00-0.20); Basophils % (auto) 0.5 %; Eosinophils # (auto) 0.11 K/uL (0.00-0.50); Eosinophils % (auto) 1.1 %; Hematocrit (blood only) 42.8 % (37.0-47.0); Hemoglobin 14.8 g/dl (12.0-16.0); Immature Granulocytes # (auto) 0.03 K/uL (0.01-0.20); Immature Granulocytes % (auto) 0.3 %; Lymphocytes # (auto) 2.69 K/uL (1.20-3.40); Lymphocytes % (auto) 26.7 %; Mean Corpuscular Hemoglobin 27.9 pg (25.0-34.0); Mean Corpuscular Hgb Conc 34.6 g/dL (32.0-36.0); Mean Corpuscular Volume 80.6 fL (80.0-100.0); Mean Platelet Volume 9.7 fL (9.4-12.4); Monocytes # (auto) 1.06 K/uL (0.11-0.59); Monocytes % (auto) 10.5 %; Neutrophils # (auto) 6.15 K/uL (1.40-6.50); Neutrophils % (auto) 60.9 %; Platelet Count 316 K/uL (130-400); RDW Coefficient of Variation 12.7 % (11.5-14.5); RDW Standard Deviation 36.2 fL (36.4-46.3); Red Blood Count 5.31 M/uL (4.20-5.40); White Blood Count 10.09 K/ul (4.8-10.8)
[2024-09-14 23:53] VITALS: PULSE 85
--- NOTE | 2024-09-14 23:58 | History & Physical Report ---
Date of Service September 14, 2024 Assessment & Plan Plan Pt is a 58 yo female with a past med hx of HTN, bipolar and depression who presents from psych floor to hospital floor for admission for quite symptomatic new onset afib. #Afib, new onset - no prior hx per pt - initially noted to be HR 130-150s and BP did drop to 90s/60s - labs ordered; CBC, CMP, mag, trop all pending - EKG shows afib - TSH 2.1 on 09/13 - focus at this point will be on rate control as able - pt to be admitted back to hospital to PCU floor given new onset symptomatic afib with notable low BPs with RVR at one point. PCU specifically in case drip/IV lopressor may be needed, and back to the hospital for further labs/workup for chest pain #Bipolar 1 #Depression - psych consulted (will return to psych floor once medically stable again) DVT ppx: CHADSVASC score of 2 (gender, HTN), will defer anticoagulation tonight Admission and Anticipated Discharge Date Admission Date: September 14, 2024 History of Present Illness Chief Complaint: Chest pain, new onset afib Primary Care Provider: Shai Cevallos MD Pt is a 58 yo female with a past med hx of HTN, bipolar and depression who presents from psych floor to hospital floor for admission for quite symptomatic new onset afib. Received message from psych provider this evening for pt with new onset afib. Went to [address] [place] [address] to evaluate pt. Nurse there states pt states she feels very somnolent when her HR does up. Pt does shake head yes or no to questions but does not give meaningful hx. She denies hx of arrhythmias in the past. She notes she is having chest pain. She had reported 10/10 chest pain to nursing staff. Staff also note she was more interactive prior to this. Staff note at one point her rate was in the 150s and BP was in 90s/60s but improved with repeat BP. Pt is not anticoagulated at this time. She did get her first dose of carvedilol tonight (she had not taken this in weeks.) Allergies Allergy/AdvReac Type Severity Reaction Status Date / Time black cohosh Allergy Unknown HIVES Verified 09/13/24 19:11 methylprednisolone Allergy Unknown Redness of Verified 09/13/24 19:11 Skin clindamycin Allergy Hives Verified 09/13/24 19:11 hydrochlorothiazide Allergy Hives Verified 09/13/24 19:11 lisinopril Allergy Cough Verified 09/13/24 19:11 Home Medications Medication Instructions Recorded Confirmed Type calcium carbonate (Calcium 600) 600 mg PO DAILY 09/27/22 09/13/24 History montelukast 10 mg tablet 10 mg PO HS #90 tabs 02/03/24 09/13/24 Rx cetirizine 10 mg tablet 10 mg PO HS #90 tabs 04/06/24 09/13/24 Rx albuterol sulfate 90 mcg/actuation 1 inh inhalation QID PRN shortness 04/14/24 09/13/24 Rx aerosol inhaler of breath or wheezing #6.7 grams budesonide-formoterol HFA 160 2 puff inhalation Q12H #10.2 grams 05/11/24 09/13/24 Rx mcg-4.5 mcg/actuation aerosol inhaler (Symbicort) ferrous sulfate 325 mg (65 mg 325 mg PO Q OTHER DAY 05/11/24 09/13/24 History iron) tablet divalproex 250 mg tablet,extended 250 mg PO HS 05/25/24 09/13/24 History release 24 hr ergocalciferol (vitamin D2) 1,250 1,250 mcg PO WK 05/25/24 09/13/24 History mcg (50,000 unit) capsule (Vitamin D2) meclizine 25 mg tablet 25 mg PO TID PRN dizziness #14 tabs 05/25/24 09/13/24 Rx carvedilol 12.5 mg tablet 12.5 mg PO BID #60 tabs 08/11/24 09/13/24 Rx Past Med/Surg History Problem List (Updated 09/14/24 @ 13:52 by Eduarda Pulliam MD) Capgras delusion Psychotic disorder with delusions Bipolar disorder, curr episode mixed, severe, with psychotic features Elevated troponin (Acute) HTN (hypertension) (Acute) Abdominal pain (Acute) Bipolar 1 disorder with moderate amparo (Acute) Degenerative disc disease, lumbar Foot pain, right Right knee pain Prediabetes Postmenopausal Metabolic syndrome Overweight SOB (shortness of breath) on exertion Allergy Asthma (Chronic) Acid reflux disease (Chronic) Chronic sinusitis (Chronic) Lumbar herniated disc (Chronic) PTSD (post-traumatic stress disorder) (Chronic) Sinus bradycardia (Chronic) Sleep disturbance (Chronic) Transient ischemic attack (Chronic) Vitamin D deficiency (Chronic) Depression (Chronic) Hypertension (Chronic) Medical History Cataract UTI (urinary tract infection) COVID-19 Uterine leiomyoma Breast mass Encounter for routine gynecological examination Esophagitis Mood disorder Left flank pain Insomnia Hallucinations History of adenomatous polyp of colon Asthma Endometriosis Chest pain Surgical History S/P bilateral salpingo-oophorectomy Status post laparoscopic supracervical hysterectomy S/P cholecystectomy History of sinus surgery History of nasal septoplasty History of breast biopsy History of laparoscopy endometriosis with laser Family History Mother Hypertension Asthma Malignant neoplasm of uterus Brother Hypertension Grandmother Diabetes Father Kidney stones Myocardial infarction Family/Other Osteoporosis Grandfather (Maternal) Myocardial infarction Other Cancer Heart disease Denies family history of Ovarian cancer Prostate cancer Breast cancer Colorectal cancer Social History Smoking Status: Never smoker Do You Dip or Chew Tobacco: No; Hx Alcohol Use: No Hx Substance Use: No Preferred Language: Belarusian Communication Ability: Effective Visual Impairment: No Limitations Hearing Ability: Normal Blunger Required: No Beliefs That Will Affect Care: Spiritual marital status: Current Living Situation: Spouse Current Living Situation Comment: House With current occupational status: employed Feels Safe at Home: Yes Childhood Exposure to Second-Hand Smoke: No Dental Care, Regularly: Yes Physical Activity Frequency: 3-4 Times per Week Seatbelt Use: always Sunscreen Use: Yes Gender Identity: Female Assistive Devices: None Review of Systems Review of Systems: Per HPI. Physical Exam Physical Exam: General: Laying with eyes closed, no acute distress but uncomfortable appearing HEENT: Normocephalic, moist oral mucosa, Cardio: Irregularly irregular rate and rhythm, no murmur, Resp: Lungs clear to auscultation b/l, no wheezes or rhonchi, GI: Soft and nontender Skin: Warm, pink, dry, Results & Data Results & Data Vital Signs (Past 12 Hours) Vital Signs Pulse Pulse Resp BP Pulse Ox O2 Del Method 05/26/25 22:49 129 H 99/68 L 97 Room Air 09/14/24 20:37 94 H 18 138/87 09/14/24 16:19 85 20 154/81 H 98 Room Air Code Status & VTE Plan VTE Prophylaxis Plan VTE Prophylaxis will be ordered: No Reason for no VTE drug order: Treatment not indicated
[2024-09-15 00:07] LABS: Albumin Globulin Ratio 1.3 (0.9-2); BUN Creatinine Ratio 14.7 (10-20); Bilirubin,Total 0.4 mg/dl (0.2-1.0); Calcium 9.1 mg/dl (8.6-10.3); Magnesium 1.8 mg/dl (1.7-2.4); Potassium 3.4 mmol/L (3.5-5.1)
[2024-09-15 00:14] LABS: Troponin I High Sensitivity 32.7 pg/ml (0-14)
--- NOTE | 2024-09-15 14:17 | Electrocardiogram Report ---
Test Reason : Blood Pressure : */* mmHG Vent. Rate : 129 BPM Atrial Rate : 416 BPM P-R Int : * ms QRS Dur : 78 ms QT Int : 334 ms P-R-T Axes : * 50 14 degrees QTcB Int : 489 ms Atrial fibrillation with rapid ventricular response Abnormal ECG When compared with ECG of 13-Sep-2024 17:05, Atrial fibrillation has replaced Sinus rhythm Vent. rate has increased by 52 bpm Criteria for Inferior infarct are no longer Present Confirmed by Olivier Moraes ([id number]) on 09/15/2024 2:16:55 PM Referred By: Eduarda Pulliam Confirmed By: Olivier Moraes
== END 2024-09-14 23:45 | disposition short-term general hospital (02) ==
LOC: 3S 14:38